=== PATIENT | female | born 1980 | race Caucasian/White ===

== ENCOUNTER 2019-10-05 08:36 | Emergency (ER) | payer BC, OTHER ==
[2019-10-05 08:46] VITALS: TEMP 98.2
--- NOTE | 2019-10-05 09:09 | ED ---
SOB HPI - General Source: patient Mode of arrival: ambulatory Limitations: no limitations <Kristi Frey - Last Filed: 10/05/19 11:11> <Mary Jane Subramanian - Last Filed: 10/07/19 14:19> - General Chief Complaint: Shortness of Breath Stated Complaint: lt leg pain, SOB Time Seen by Provider: 10/05/19 08:50 - History of Present Illness Initial Comments: Pleasant 39-year-old female presenting today for chief complaint of left calf pain shortness of breath. Patient states one month ago when running from the barn into the house she had what she felt like a left calf strain. She states that that sensation went away after a few days. Patient states the past week she has had aching throbbing left calf pain she denied knowing any significant swelling patient states that since Sunday she has had SOB she had an episode at work where she felt like she was tight in the chest, and very SOB. Patient denies and ripping tearing or back pain. Denies hemoptysis, surgeries, history of known cancer, family or personal history of PE. Patient denies experiencing this prior to the past week. Patient states that she has been having progressively worsening SOB with ambulation, talking and decided to come to the ER since it has become so severe. Denies chest pain or pressure today. Denies any known cardiac history. Patient on arrival does not appear in respiratory distress, she has normal respiration rate, speaking complete sentences. Patient accompanied by her . (Kristi Frey) - Related Data Home Medications Medication Instructions Recorded Confirmed Norgestimate-Ethinyl Estradiol 1 tab PO HS 10/05/19 10/05/19 [Tri-Sprintec Tablet] Allergies Allergy/AdvReac Type Severity Reaction Status Date / Time Penicillins Allergy Rash/Hives Verified 10/05/19 09:46 Review of Systems ROS Other: All systems not noted in ROS Statement are negative. <Kristi Frey - Last Filed: 10/05/19 11:11> ROS Other: All systems not noted in ROS Statement are negative. <Mary Jane Subramanian - Last Filed: 10/07/19 14:19> ROS Statement: Those systems with pertinent positive or pertinent negative responses have been documented in the HPI. Past Medical History Past Medical History: No Reported History History of Any Multi-Drug Resistant Organisms: None Reported Past Surgical History: Appendectomy Past Psychological History: No Psychological Hx Reported Smoking Status: Current every day smoker Past Alcohol Use History: Occasional Past Drug Use History: None Reported <Kandace Freymarisela Nazario - Last Filed: 10/05/19 11:11> General Exam Limitations: no limitations <Kristi Frey Mansi - Last Filed: 10/05/19 11:11> - General Exam Comments Initial Comments: General: The patient is awake and alert, in no distress Eye: +3 mm pupils are equal, round and reactive to light, extra-ocular movements are intact. No nystagmus. There is normal conjunctiva bilaterally. No signs of icterus. Ears, nose, mouth and throat: There are moist mucous membranes and no oral lesions. Neck: The neck is supple, there is no tenderness, no obvious JVD. Cardiovascular: There is a regular rate and rhythm. Faint murmur probable, however norub or gallop is appreciated. Respiratory: Lungs are clear to auscultation, respirations are non-labored, breath sounds are equal. No wheezes, stridor, rales, or rhonchi. Does states she feel short of breath after talking. Gastrointestinal: Soft, non-distended, non-tender abdomen without masses or organomegaly noted. There is no rebound or guarding present. Musculoskeletal: Normal ROM, no tenderness. Strength 5/5. Sensation intact. Radial and DP pulses equal bilaterally 2+. Neurological: A&O x 3. CN II-XII intact grossly, There are no obvious motor or sensory deficits. Coordination appears grossly intact. Speech is normal. Skin: Skin is warm and dry and no rashes or lesions are noted. Claf pain and tenderness to palpation over the left medial aspect there does appears to be an increase in calf size of left in comparison with the right. Psychiatric: Cooperative, appropriate mood & affect, normal judgment. (Kristi Frey) Course <ShanteKristi Nazario - Last Filed: 10/05/19 11:11> <Mary Jane Subramanian - Last Filed: 10/07/19 14:19> Vital Signs 10/05/19 10/05/19 10/05/19 08:43 09:47 09:58 Temperature 98.2 F Pulse Rate 112 H 52 L 137 H Respiratory 18 16 18 Rate Blood Pressure 141/89 98/81 163/121 O2 Sat by Pulse 97 98 98 Oximetry 10/05/19 10/05/19 10/05/19 10:00 10:09 10:12 Temperature Pulse Rate 90 88 88 Respiratory 18 18 16 Rate Blood Pressure 123/87 125/67 101/68 O2 Sat by Pulse 96 98 97 Oximetry 10/05/19 10/05/19 10/05/19 10:15 10:33 11:10 Temperature Pulse Rate 90 89 90 Respiratory 18 16 20 Rate Blood Pressure 113/69 144/112 141/102 O2 Sat by Pulse 97 82 L 94 L Oximetry 10/05/19 11:21 Temperature Pulse Rate 88 Respiratory 20 Rate Blood Pressure 132/98 O2 Sat by Pulse 97 Oximetry - Reevaluation(s) Reevaluation #1: Patient became unresponsive in the CT machine, patient was immediately evaluated by my attending Dr. Subramanian, transferred to the trauma bay. Intubated. 10/05/19 09:49 (Kristi Frey) Reevaluation #2: 10/05/19 09 (Kristi Frey) Reevaluation #3: 10/05/19 10:40 Spoke with patient's . I spoke with Dr. Mills. Requesting CT prior to transfer. Patient's vital stable at this time (Mary Jane Subramanian) Procedures - Central Line Placement Right Femoral Consent Obtained: emergent situation Patient Placed on Monitor/Pulse Ox: Yes MD Prep: mask, gown, gloves Central Line Prep: Chlorhexidine scrub Ultrasound Used for Placement: Yes Central Line Lumen Inserted: triple Bloods Obtained for Lab: No Central Line Position: good blood return, all ports aspirated, flushed, capped, sutured in place with nylon Dressing Applied: Tegaderm Patient Tolerated Procedure: no complications - Intubation Sedative: Etomidate Mg Given: 10 Paralytic: Succinylcholine Mg Given: 80 Laryngoscope: fiber optic video scope Size: 3 ET Tube Size: 7.5 ET Tube Uncuffed: No Tube Secured Depth (cm): 22 Tube Secured Location: teeth Tube Placement Confirmation: visualized tube passing through cords, equal breath sounds bilaterally, no breath sounds over epigastrium, confirmation by capnometry Patient Tolerated Procedure: well, no complications <Mary Jane Subramanian - Last Filed: 10/07/19 14:19> Medical Decision Making - Lab Data Result diagrams: 10/05/19 09:12 10/05/19 09:12 <Kristi Frey - Last Filed: 10/05/19 11:11> - Lab Data Result diagrams: 10/05/19 09:12 10/05/19 09:12 <Mary Jane Subramanian - Last Filed: 10/07/19 14:19> - Medical Decision Making I was called to CT to evaluate an unresponsive patient. Patient found to be agonal breathing and cyanotic from the shoulders up. Patient is removed from the CAT scanner and placed onto the stretcher. She is immediately placed in trauma bay 1. Patient does have a pulse at this time. She does have breath sounds bilaterally however she is agonal. Given RSI medications to include 10 mg of etomidate and 80 mg of succinylcholine. Patient intubated with a 7.5 cm tube, 22 cm at the teeth. Patient does have improvement in oxygenation in however she does have rapid bradycardia with arrest. CPR is started. Patient received a dose of epinephrine and one round of compressions lasting 3 minutes. As the patient has had a history of calf pain with exertional shortness of breath and cardiac arrest I did give the patient 50 mg of TPA over 60 seconds with suspicion that patient suffered cardiac arrest due to PE. Pulses are checked and the patient does have return of pulses. Blood pressure is cycled several time and does remain stable. Central line placed in the patient's right groin by myself. EKG obtained which demonstrates right heart strain. Labs are reviewed. Patient has elevated BNP and troponin. Repeat chest x-ray performed which does demonstrate hazy opacities bilaterally worsened on the right. I discussed case with Dr. Davey who requested CT prior to transfer. Patient sent to CT. EMS was called and arrive on scene. Patient loaded into EMS upon return from CT. Prior to transfer she has an intact gag reflex, is opening eyes spontaneously. I started the patient on propofol sedation. Radiology images reviewed by myself demonstate PE. Patient transported in critical condition. She will be transferred to [facility]. Case was discussed with their facility and Dr. Pratt is accepting doctor. CT report was called to me after patient had left confirming PE with heart strain. Report faxed to [facility] and Dr. Pratt was updated of CT read. Multiple discussions with patients informed him of his wifes critical status. allowed to see patient prior to transport. (Mary Jane Subramanian) - Lab Data Lab Results 10/05/19 10/05/19 10/05/19 Range/Units 09:12 09:12 09:12 WBC 9.8 (3.8-10.6) k/uL RBC 4.14 (3.80-5.40) m/uL Hgb 13.4 (11.4-16.0) gm/dL Hct 39.8 (34.0-46.0) % MCV 96.3 (80.0-100.0) fL MCH 32.3 (25.0-35.0) pg MCHC 33.6 (31.0-37.0) g/dL RDW 12.1 (11.5-15.5) % Plt Count 170 (150-450) k/uL Neutrophils % 75 % Lymphocytes % 16 % Monocytes % 5 % Eosinophils % 3 % Basophils % 1 % Neutrophils # 7.4 (1.3-7.7) k/uL Lymphocytes # 1.6 (1.0-4.8) k/uL Monocytes # 0.5 (0-1.0) k/uL Eosinophils # 0.3 (0-0.7) k/uL Basophils # 0.0 (0-0.2) k/uL PT (9.0-12.0) sec INR (<1.2) APTT (22.0-30.0) sec D-Dimer (<0.60) mg/L FEU Sample Site ABG pH (7.35-7.45) ABG pCO2 (35-45) mmHg ABG pO2 (83-108) mmHg ABG HCO3 (21-25) mmol/L ABG Total CO2 (19-24) mmol/L ABG O2 Saturation (94-97) % ABG Base Excess mmol/L Eleuterio Test FiO2 % Sodium 137 (137-145) mmol/L Potassium 4.3 (3.5-5.1) mmol/L Chloride 109 H (98-107) mmol/L Carbon Dioxide 19 L (22-30) mmol/L Anion Gap 9 mmol/L BUN 14 (7-17) mg/dL Creatinine 0.80 (0.52-1.04) mg/dL Est GFR (CKD-EPI)AfAm >90 (>60 ml/min/1.73 sqM) Est GFR (CKD-EPI)NonAf >90 (>60 ml/min/1.73 sqM) Glucose 102 H (74-99) mg/dL POC Glucose (mg/dL) (75-99) mg/dL POC Glu Cso ID Plasma Lactic Acid Rajendra 1.2 (0.7-2.0) mmol/L Calcium 9.3 (8.4-10.2) mg/dL Total Bilirubin 0.4 (0.2-1.3) mg/dL AST 182 H (14-36) U/L ALT 205 H (4-34) U/L Alkaline Phosphatase 69 (38-126) U/L Troponin I (0.000-0.034) ng/mL NT-Pro-B Natriuret Pep pg/mL Total Protein 6.7 (6.3-8.2) g/dL Albumin 4.0 (3.5-5.0) g/dL HCG, Qual 10/05/19 10/05/19 10/05/19 Range/Units 09:12 09:12 09:12 WBC (3.8-10.6) k/uL RBC (3.80-5.40) m/uL Hgb (11.4-16.0) gm/dL Hct (34.0-46.0) % MCV (80.0-100.0) fL MCH (25.0-35.0) pg MCHC (31.0-37.0) g/dL RDW (11.5-15.5) % Plt Count (150-450) k/uL Neutrophils % % Lymphocytes % % Monocytes % % Eosinophils % % Basophils % % Neutrophils # (1.3-7.7) k/uL Lymphocytes # (1.0-4.8) k/uL Monocytes # (0-1.0) k/uL Eosinophils # (0-0.7) k/uL Basophils # (0-0.2) k/uL PT (9.0-12.0) sec INR (<1.2) APTT (22.0-30.0) sec D-Dimer (<0.60) mg/L FEU Sample Site ABG pH (7.35-7.45) ABG pCO2 (35-45) mmHg ABG pO2 (83-108) mmHg ABG HCO3 (21-25) mmol/L ABG Total CO2 (19-24) mmol/L ABG O2 Saturation (94-97) % ABG Base Excess mmol/L Eleuterio Test FiO2 % Sodium (137-145) mmol/L Potassium (3.5-5.1) mmol/L Chloride (98-107) mmol/L Carbon Dioxide (22-30) mmol/L Anion Gap mmol/L BUN (7-17) mg/dL Creatinine (0.52-1.04) mg/dL Est GFR (CKD-EPI)AfAm (>60 ml/min/1.73 sqM) Est GFR (CKD-EPI)NonAf (>60 ml/min/1.73 sqM) Glucose (74-99) mg/dL POC Glucose (mg/dL) (75-99) mg/dL POC Glu Cso ID Plasma Lactic Acid Rajendra (0.7-2.0) mmol/L Calcium (8.4-10.2) mg/dL Total Bilirubin (0.2-1.3) mg/dL AST (14-36) U/L ALT (4-34) U/L Alkaline Phosphatase (38-126) U/L Troponin I 0.044 H* (0.000-0.034) ng/mL NT-Pro-B Natriuret Pep 2600 pg/mL Total Protein (6.3-8.2) g/dL Albumin (3.5-5.0) g/dL HCG, Qual Not Detected 10/05/19 10/05/19 10/05/19 Range/Units 09:33 11:00 11:03 WBC (3.8-10.6) k/uL RBC (3.80-5.40) m/uL Hgb (11.4-16.0) gm/dL Hct (34.0-46.0) % MCV (80.0-100.0) fL MCH (25.0-35.0) pg MCHC (31.0-37.0) g/dL RDW (11.5-15.5) % Plt Count (150-450) k/uL Neutrophils % % Lymphocytes % % Monocytes % % Eosinophils % % Basophils % % Neutrophils # (1.3-7.7) k/uL Lymphocytes # (1.0-4.8) k/uL Monocytes # (0-1.0) k/uL Eosinophils # (0-0.7) k/uL Basophils # (0-0.2) k/uL PT >130.0 H (9.0-12.0) sec INR >10.0 H* (<1.2) APTT >200.0 H* (22.0-30.0) sec D-Dimer >35.20 H (<0.60) mg/L FEU Sample Site RBRAC ABG pH 6.97 L* (7.35-7.45) ABG pCO2 76 H* (35-45) mmHg ABG pO2 175 H (83-108) mmHg ABG HCO3 17 L (21-25) mmol/L ABG Total CO2 20 (19-24) mmol/L ABG O2 Saturation 97.3 H (94-97) % ABG Base Excess -14.6 mmol/L Eleuterio Test Yes FiO2 100 % Sodium (137-145) mmol/L Potassium (3.5-5.1) mmol/L Chloride (98-107) mmol/L Carbon Dioxide (22-30) mmol/L Anion Gap mmol/L BUN (7-17) mg/dL Creatinine (0.52-1.04) mg/dL Est GFR (CKD-EPI)AfAm (>60 ml/min/1.73 sqM) Est GFR (CKD-EPI)NonAf (>60 ml/min/1.73 sqM) Glucose (74-99) mg/dL POC Glucose (mg/dL) 92 (75-99) mg/dL POC Glu Cso ID [place] Plasma Lactic Acid Rajendra (0.7-2.0) mmol/L Calcium (8.4-10.2) mg/dL Total Bilirubin (0.2-1.3) mg/dL AST (14-36) U/L ALT (4-34) U/L Alkaline Phosphatase (38-126) U/L Troponin I (0.000-0.034) ng/mL NT-Pro-B Natriuret Pep pg/mL Total Protein (6.3-8.2) g/dL Albumin (3.5-5.0) g/dL HCG, Qual - EKG Data EKG Comments: EKG performed at 9:17 AM demonstrates a ventricular rate of 101. CO interval 144. QRS 80. QTC of 466. No acute ST segment elevations. T wave with some ST depression in lead 3. EKG at 950 when patient becomes bradycardic demonstrates a junctional rhythm with a rate of 29. QRS 82. QTC 271. Some ST depression in inferior leads. Patient does code within seconds EKG after ROSC at 958 demonstrates a supra ventricular tachycardia with a ve ntricular rate of 133 . QRS 108. QTC of 470. ST depression in leads 3. Right bundle branch block. EKG at 1003 demonstrates a sinus rhythm with a ventricular rate of 93. CO interval 146. QRS 82. QTC 445. Inverted T-wave in lead 3 persist. No depression at this time. No acute ST segment elevations (Mary Jane Subramanian) Critical Care Time Critical Care Time: Yes <Mary Jane Subramanian - Last Filed: 10/07/19 14:19> Critical Care Time: 50 minutes (Mary Jane Subramanian) Disposition <Kristi Frey - Last Filed: 10/05/19 11:11> Is patient prescribed a controlled substance at d/c from ED?: No Time of Disposition: 10:50 - Out of Hospital Transfer - Req. Specs Out of Hospital Transfer - Requested Specifics: Other Emergency Center ([facility]) <Mary Jane Subramanian - Last Filed: 10/07/19 14:19> Clinical Impression: Pulmonary embolism, Cardiopulmonary arrest with successful resuscitation Disposition: OTHER INSTITUTION NOT DEFINED Condition: Critical Referrals: Todd Kumar DO [Primary Care Provider] - 1-2 days
[2019-10-05] MEDS ORDERED: ETOMIDATE 2 MG/ML 10 ML VIAL IVP STA (09:35)
[2019-10-05 09:37] LABS: Basophils % (A) 1 %; Eosinophils # (A) 0.3 k/uL (0-0.7); Eosinophils % (A) 3 %; HCT 39.8 % (34.0-46.0); HGB 13.4 gm/dL (11.4-16.0); Lymphocytes # (A) 1.6 k/uL (1.0-4.8); Lymphocytes % (A) 16 %; MCH 32.3 pg (25.0-35.0); MCHC 33.6 g/dL (31.0-37.0); MCV 96.3 fL (80.0-100.0); Mean Platelet Volume 9.2; Monocytes # (A) 0.5 k/uL (0-1.0); Monocytes % (A) 5 %; Neutrophils # (A) 7.4 k/uL (1.3-7.7); Neutrophils % (A) 75 %; Platelet Count 170 k/uL (150-450); RBC 4.14 m/uL (3.80-5.40); RDW 12.1 % (11.5-15.5); WBC 9.8 k/uL (3.8-10.6)
[2019-10-05 09:41] LABS: ALT 205 U/L (4-34); AST 182 U/L (14-36); African American GFR (CKD) >90 (>60 ml/min/1.73 sqM); Alkaline Phosphatase 69 U/L (38-126); Anion Gap 9 mmol/L; Blood Urea Nitrogen 14 mg/dL (7-17); Calcium 9.3 mg/dL (8.4-10.2); Carbon Dioxide 19 mmol/L (22-30); Chloride 109 mmol/L (98-107); Glucose 102 mg/dL (74-99); Non-African American GFR(CKD) >90 (>60 ml/min/1.73 sqM); Potassium 4.3 mmol/L (3.5-5.1); Sodium 137 mmol/L (137-145); Total Bilirubin 0.4 mg/dL (0.2-1.3); Total Protein 6.7 g/dL (6.3-8.2)
[2019-10-05 09:44] LABS: Glucose,Whole Blood 92 mg/dL (75-99)
[2019-10-05] MEDS ORDERED: SUCCINYLCHOLINE CHLORIDE VIAL 200 MG/10 ML VIAL IV STA (09:46)
[2019-10-05] MEDS ORDERED: EPINEPHrine 10 ML SYRINGE (0.1 MG/ML) ONE (09:52)
[2019-10-05] MEDS ORDERED: ALTEPLASE IV STA (09:56)
[2019-10-05] MEDS ORDERED: ALTEPLASE 100 MG VIAL IV STA (09:57)
[2019-10-05] MEDS ORDERED: ALTEPLASE 50 MG VIAL IV ONE (10:08)
--- NOTE | 2019-10-05 10:08 | XR ---
EXAMINATION TYPE: XR chest 1V DATE OF EXAM: 10/05/2019 HISTORY: difficulty breathing. REFERENCE: NONE. FINDINGS: The patient has been intubated. ET tube is in satisfactory position with the tip measuring 2.8 cm above the ilana. The lungs are clear. Pleural space are clear. The heart is not enlarged. IMPRESSION: NO ACTIVE INTRATHORACIC DISEASE.
[2019-10-05] MEDS ORDERED: ALTEPLASE 50 MG in EMPTY BAG 1 BAG IV STA (10:13)
--- NOTE | 2019-10-05 10:21 | XR ---
EXAMINATION TYPE: XR chest 1V portable DATE OF EXAM: 10/05/2019 HISTORY: CARDIAC ARREST. REFERENCE: Previous study dated 10/05/2019. FINDINGS: The patient is ET tube remains in place, unchanged in appearance. There is been a marked worsening in the appearance of the chest. There is worsening right-sided airsp ludwin disease the left lung is relatively clear. The heart is not enlarged. Pleural spaces are clear. IMPRESSION: DRAMATIC WORSENING RIGHT-SIDED AIRSPACE DISEASE FROM THE PREVIOUS STUDY. THIS COULD REPRESENT ASPIRAT ION.
[2019-10-05 11:12] VITALS: RESP 20
[2019-10-05 11:15] LABS: ABG Base Excess -14.6 mmol/L; ABG HCO3 17 mmol/L (21-25); ABG Oxygen Saturation 97.3 % (94-97); ABG PCO2 76 mmHg (35-45); ABG PH 6.97 (7.35-7.45); ABG PO2 175 mmHg (83-108); ABG TCO2 20 mmol/L (19-24); Allen Test Performed? Yes
[2019-10-05 11:22] VITALS: BP 132/98; PULSE 88
--- NOTE | 2019-10-05 11:37 | CT ---
EXAMINATION TYPE: CT chest angio for PE DATE OF EXAM: 10/05/2019 COMPARISON: None. HISTORY: Calf pain, SOB, swelling x [address] DLP: 290.1 mGycm Automated exposure control for dose reduction was used. CONTRAST: CT Chest for pulmonary embolism performed with without and with IV Contrast, patient injected with 10 0 ml mL of Isovue 370. FINDINGS: The patient is intubated. There is an NG tube with its tip at the gastroesophageal junction and should likely be advanced slightly. There is diffuse, patchy groundglass opacity throughout both lungs. This is suspicious for Covid 19 i nfection. This is most confluent in the superior segments of both lower lobes. There is no significant axillary, mediastinal or hilar adenopathy. There is no pleural or pericardial fluid. The heart is not enlarged. There are multiple pulmonary emboli in the first and second order branches of the left lower lobe pul monary artery as well as in the first order branches of the left upper lobe pulmonary artery. There a re also emboli in the right upper lobe pulmonary arteries in the first order branches. There is some reflux of contrast into the inferior vena cava and there is flattening of the ventricul ar septum. These are signs of mild right ventricular strain. IMPRESSION: 1. THIS EXAMINATION IS POSITIVE FOR PULMONARY EMBOLI BILATERALLY. 2. CT SCAN OF THE CHEST STRONGLY SUGGESTS COVID 19 INFECTION.
[2019-10-05 12:06] LABS: D-Dimer >35.20 mg/L FEU (<0.60); INR >10.0 (<1.2)
[2019-10-05 12:16] LABS: Partial Thromboplastin Time >200.0 sec (22.0-30.0)
[2019-10-05 12:17] LABS: Prothrombin Time >130.0 sec (9.0-12.0)
--- NOTE | 2019-10-07 08:06 | CDI ---
Dear Kristi Frey, PAC Please do addendum for Critical Care timing (Not Mention ) Thank you, Kali Conti Computer [employer] Auditor If you have any questions, please contact Certified Breastfeeding Educator at [phone] MARIFER
== END 2019-10-05 11:30 | disposition other institution (70) ==
LOC: EC 08:36
DX: I46.9 Cardiac arrest, cause unspecified (principal); I26.99 Other pulmonary embolism without acute cor pulmonale; I45.10 Unspecified right bundle-branch block; R79.89 Other specified abnormal findings of blood chemistry; R91.8 Other nonspecific abnormal finding of lung field; F17.200 Nicotine dependence, unspecified, uncomplicated; Z79.3 Long term (current) use of hormonal contraceptives; Z88.0 Allergy status to penicillin
CPT/HCPCS: 99291 ×2; 36556 ×2; 31500 ×2; 37195 ×2; 92950 ×2; 36415; 36600; 85379; 83880; 80053; 82805; 83605; 84484; 85025; 85610; 85730; 84703; 71045; 71275; J0330; J2997; J0171; J2704; Q9967; 94002

== ENCOUNTER → 2022-04-03 | Outpatient (CLI) | payer BC ==
--- NOTE | 2022-04-04 20:43 | MM ---
Reason for Exam: Screening (asymptomatic). Baseline mammogram. Patient History: Menarche at age 10. First Full-Term at age 20. Hormonal Contraceptives, starting at age 16. Last menstrual period: 03/26/2022 Risk Values: Patricai 5 year model risk: 0.6%. NCI Lifetime model risk: 8.8%. Prior Study Comparison: Patient's first Mammogram. No prior studies available for comparison. Tissue Density: The breast tissue is heterogeneously dense. This may lower the sensitivity of mammography. Findings: Analyzed By CAD. Underlying nodularity lower inner quadrant right breast for which further evaluation is recommended. Lateral asymmetric density left cc view at a middle depth could represent superimposition shadow but incompletely disperses on 3-D images. Further evaluation recommended. Overall Assessment: Incomplete: need additional imaging evaluation, BI-RAD 0 Management: Special View Mammogram of the left breast. Diagnostic Breast Ultrasound of the left breast. Additional views including spot 3-D CC (2 sites), 3-D CC rolled medial, spot 3-D MLO, and 3-D lateral views. Whole left breast ultrasound, particular attention to the lower inner quadrant as well as the lateral aspect. [facility] will attempt to contact patient to return for supplemental views and ultrasound if indicated. Electronically signed and approved by: Nathanael Escalante M.D. Radiologist
== END | disposition home or self-care (01) ==
LOC: RADMAMWWP 14:32
PROVIDERS: ATTEND Obstetrics & Gynecology
DX: Z12.31 Encounter for screening mammogram for malignant neoplasm of breast (principal)
CPT/HCPCS: 77063; 77067

== ENCOUNTER → 2022-04-06 | Outpatient (CLI) | payer BC ==
--- NOTE | 2022-04-06 11:16 | MM ---
Reason for Exam: Additional evaluation requested from abnormal screening. Last screening mammogram was performed less than 1 month ago. Patient History: Menarche at age 10. First Full-Term at age 20. Hormonal Contraceptives, starting at age 16. Last menstrual period: 03/29/2022 Risk Values: Patricia 5 year model risk: 0.6%. NCI Lifetime model risk: 8.8%. Prior Study Comparison: 04/03/2022 Bilateral MG 3D screening mammo w/cad, [facility]. Tissue Density: Left: There are scattered fibroglandular densities. Findings: Analyzed By CAD. The questioned lateral area of asymmetric density disperses on additional spot 3-D CC view. However, the 9 mm area of circumscribed nodularity at the 7 to 8:00 position persists. A cyst is possible. Further ultrasound evaluation is recommended. Overall Assessment: Incomplete: need additional imaging evaluation, BI-RAD 0 Management: Diagnostic Breast Ultrasound of the left breast. 7-8 o'clock. Electronically signed and approved by: Nathanael Escalante M.D. Radiologist
--- NOTE | 2022-04-06 11:43 | USB ---
Reason for Exam: Additional evaluation requested from abnormal screening. Patient History: Menarche at age 10. First Full-Term at age 20. Hormonal Contraceptives, starting at age 16. Risk Values: Patricia 5 year model risk: 0.6%. NCI Lifetime model risk: 8.8%. Prior Study Comparison: 04/03/2022 Bilateral MG 3D screening mammo w/cad, [facility]. Findings: The lower inner quadrant of the left breast, the axilla of the left breast and the retroareolar of the left breast were scanned. Targeted ultrasound left breast 6:00 to 9:00 position, lower and upper quadrant including the subareolar region and axilla. At the 7:00 position, 5 cm from the nipple, corresponding to the mammographic mass, there is a benign cyst measuring 8 x 6 x 4 mm. No other solid or cystic lesion.. Overall Assessment: Benign, BI-RAD 2 Management: Screening Mammogram of both breasts in 1 year. 1. Patient should continue monthly self breast exams. 2. A clinical breast exam by your physician is recommended on an annual basis. 3. This exam should not preclude additional follow-up of suspicious palpable abnormalities. Results were given to the patient verbally at the time of exam. Electronically signed and approved by: Nathanael Escalante M.D. Radiologist
== END | disposition home or self-care (01) ==
LOC: RADMAMWWP 10:10
PROVIDERS: ATTEND Obstetrics & Gynecology
DX: R92.8 Other abnormal and inconclusive findings on diagnostic imaging of breast (principal)
CPT/HCPCS: 77061; 77065

== ENCOUNTER 2022-09-02 07:51 | Inpatient (IN) | payer BC, MEDICARE ==
[2022-09-02] MEDS ORDERED: SODIUM CHLORIDE 0.9% 1,000 ML IV ONE (08:10)
[2022-09-02] MEDS ORDERED: HALOPERIDOL LACTATE 5 MG/ML 1 ML VIAL IM STA (08:16)
[2022-09-02] MEDS ORDERED: LORazepam 2 MG/ML INJ IM STA (08:16)
--- NOTE | 2022-09-02 08:24 | ED ---
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 Patient has been diagnosed with residual UTIs over the last few weeks and has been trialed on both Macrobid and Keflex. They are uncertain if this is contributory current history. Has a baseline history of a TBI from a cardiac arrest. At baseline does have tremors especially when she is agitated. Patient's typically makes medical decisions for herself the TBI. Patient denies any acute complaints but is agitated and does not want to be here. Patient is being petitioned by to be evaluated. They state this is not her baseline mental status or function. Patient denies any acute complaints at this time. She is unable to compare why she is feeling agitated. Denies any acute complaints including chest pain, abdominal pain, nausea, vomiting, diarrhea, shortness of breath, fevers. Presents for further evaluation at this time.Patient does appear confused when I am talking with her, and is alert and oriented 2, not knowing the year.Symptoms have been progressive for weeks, noticeably worse over the last few days.Patient's petition states that she is "seeing people that aren't there, hearing voices in her head, hearing noises in the house that weree not there, and walking in circl es around the house." Petition completed by patient's son, Octavio. - Related Data Home Medications Medication Instructions Recorded Confirmed Cephalexin [Keflex] 500 mg PO Q12HR 09/02/22 09/02/22 Donepezil [Aricept] 10 mg PO HS 09/02/22 09/02/22 amantadine HCL [Amantadine] 100 mg PO BID 09/02/22 09/02/22 levETIRAcetam 1,000 mg PO Q12HR 09/02/22 09/02/22 Allergies Allergy/AdvReac Type Severity Reaction Status Date / Time Penicillins Allergy Rash/Hives Verified 09/02/22 11:17 Review of Systems ROS Statement: Those systems with pertinent positive or pertinent negative responses have been documented in the HPI. Review of Systems: CONST: Denies fever EYES: Denies blurry vision ENT: Denies nasal congestion C/V: Denies Chest pain RESP: Denies shortness of breath GI: Denies abdominal pain : Denies dysuria SKIN: Denies rash. MSK: Denies joint pain. NEURO: Denies headache ROS Other: All systems not noted in ROS Statement are negative. Past Medical History Past Medical History: No Reported History Additional Past Medical History / Comment(s): TBI 2020 History of Any Multi-Drug Resistant Organisms: None Reported Past Surgical History: Appendectomy Past Psychological History: No Psychological Hx Reported Smoking Status: Current every day smoker Past Alcohol Use History: Occasional Past Drug Use History: None Reported General Exam - General Exam Comments Initial Comments: General: Patient is somewhat agitated. HEAD: Normal with no signs of head trauma. EYES: PERRLA, EOMI, conjunctiva normal, no discharge. Pupils are 3 mm and equal bilaterally. ENT: Hearing grossly intact, normal oropharynx. RESPIRATORY: Clear breath sounds bilaterally. No wheezes, rales, or rhonchi. C/V: Tachycardic with a regular rhythm likely secondary to anxiety and agitation. S1 and S2 auscultated, no edema, peripheral pulses 2+ and intact throughout ABD: Abd is soft, nontender, nondistended EXT: Normal range of motion, no obvious deformity SKIN: No rashes or lesions observed on exposed skin. NEURO: Alert and oriented 2, baseline being alert and oriented 3. Tremors at rest/movement switches typically baseline for the patient especially when agitated per family. No focal deficits appreciated. GCS of 15. Limitations: no limitations Course Vital Signs 09/02/22 09/02/22 07:53 12:47 Temperature 98 F Pulse Rate 110 H 90 Respiratory 18 18 Rate Blood Pressure 146/87 120/70 O2 Sat by Pulse 100 98 Oximetry Medical Decision Making - Medical Decision Making Was pt. sent in by a medical professional or institution (, PA, QUALITY INSPECTOR, urgent care, hospital, or alf...) When possible be specific @ -No Did you speak to anyone other than the patient for history (EMS, parent, family, police, friend...)? What history was obtained from this source @ -Patient's son and at bedside and provided most the patient's history including the history of cardiac arrest resulting in a nontoxic brain injury/TB I, as well as the recent recurrently diagnosis UTIs. Did you review nursing and triage notes (agree or disagree)? Why? @ -I reviewed and agree with nursing and triage notes Were old charts reviewed (outside hosp., previous admission, EMS record, old EKG, old radiological studies, urgent care reports/EKG's, alf records)? Report findings @ -Old charts reviewed from 2019. Differential Diagnosis (chest pain, altered mental status, abdominal pain women, abdominal pain men, vaginal bleeding, weakness, fever, dyspnea, syncope, headache, dizziness, GI bleed, back pain, seizure, CVA, palpatations, mental health, musculoskeletal)? @ -Differential Altered Mental Status: Hypoglycemia, DKA, hypercapnia, ETOH, overdose, CO poisoning, trauma, myxedema coma, HTN encephalopathy, infection, encephalitis, psychosis, intercranial hemorrhage, hepatic encephalopathy, meningitis, CVA, this is not meant to be an all-inclusive list EKG interpreted by me (3pts min.). @ -As above X-rays interpreted by me (1pt min.). @ -Chest x-ray reveals no acute cardio coma process. Possible small right pleural effusion. CT interpreted by me (1pt min.). @ -Patient's CT brain shows no obvious acute intracranial process. U/S interpreted by me (1pt. min.). @ -None done What testing was considered but not performed or refused? (CT, X-rays, U/S, labs)? Why? @ -None What meds were considered but not given or refused? Why? @ -None Did you discuss the management of the patient with other professionals (professionals i.e. , PA, QUALITY INSPECTOR, lab, RT, psych nurse, social director, network control supervisor, teacher, worldwide chief creative officer, transplant case manager)? Give summary @ -No Was smoking cessation discussed for >3mins.? @ -No Was critical care preformed (if so, how long)? @ -yes, 35 minutes. Were there social determinants of health that impacted care today? How? (Homele ssness, low income, unemployed, alcoholism, drug addiction, transportation, low edu. Level, literacy, decrease access to med. care, senior care, rehab)? @ -No Was there de-escalation of care discussed even if they declined (Discuss DNR or withdrawal of care, Hospice)? DNR status @ -No What co-morbidities impacted this encounter? (DM, HTN, Smoking, COPD, CAD, Cancer, CVA, ARF, Chemo, Hep., AIDS, mental health diagnosis, sleep apnea, morbid obesity)? @ -History of a nontoxic brain injury with residual TBI secondary to PE arrest Was patient admitted / discharged? Hospital course, mention meds given and route, prescriptions, significant lab abnormalities, going to OR and other pertinent info. @ -Based on the patient's presentation and physical exam, she presents with altered mental status. Is being petitioned by her . Seems to have been progressive. She is placed in green scrubs. Sitter has been ordered. His no acute complaints at this time but does not know the year. She is agitated. Initially agreed to cooperate with staff including IV access, labs drawn, CT brain and chest x-ray. Patient's family was in agreement this plan. Patient's states he will complete a petition. Patient will be given IV fluids at this time. Vital signs within acceptable limits other than sinus tachycardia likely secondary to agitation. One-time dose of as needed IV Ativan and Haldol were ordered for the patient as well. Patient's petition states that she is "seeing people that aren't there, hearing voices in her head, hearing noises in the house that weree not there, and walking in circles around the house." Petition completed by patient's son, Octavio. Patient's imaging is unremarkable. EKG shows no evidence of acute ischemic process. Patient's laboratory studies are remarkable for a very mild leukocytosis of 11. Patient has a metabolic acidosis secondary to lactic acidosis with lactate of 14.4. Troponin is undetectable. Remainder the altered mental status workup is rectal for an elevated ammonia 91. Patient's lactic acid after 1 L fluid bolus improved from 14 to 5. I do not suspect sepsis at this time as the source, as the patient has no fever, is hemodynamically stable, with minimal if any leukocytosis. I do have concern abo ut lactic acid may be elevated from either hyperammonemia, dehydration, or possibly seizures or her chronic tremors. We will repeat labs. She'll be given additional fluid bolus. Patient will be given a dose of lactulose. Hyperammonemia. Family was in agreement with this plan. Urinalysis is still pending. Patient has been already been on antibiotics, I will hold any additional antibiotics until urine studies are obtained. As stated above, low concern for sepsis at this time. Repeat lactic acid did improve to 5.1 continue to monitor however I do believe patient is stable for floor admission for evaluation by neurology as well as psychiatry. Family was in agreement with this plan. We will continue to attempt to obtain a urinalysis. I consulted neurology Dr. Leyva as well as Dr. Ontiveros as of psychiatry. I spoke with the admitting physician, Dr. wong of [facility] who is covering for Dr. Snell covers for Dr. Kumar. Undiagnosed new problem with uncertain prognosis? @ -No Drug Therapy requiring intensive monitoring for toxicity (Heparin, Nitro, Insulin, Cardizem)? @ -No Were any procedures done? @ -No Diagnosis/symptom? @ -Altered mental status, confusion Acute, or Chronic, or Acute on Chronic? @ -Acute Uncomplicated (without systemic symptoms) or Complicated (systemic symptoms)? @ -Complicated Side effects of treatment? @ -none Exacerbation, Progression, or Severe Exacerbation] @ -Progression Poses a threat to life or bodily function? @ -Yes Diagnosis/symptom? @ -Elevated lactic acidosis likely secondary to seizure versus constant tremors Acute, or Chronic, or Acute on Chronic? @ -Acute Uncomplicated (without systemic symptoms) or Complicated (systemic symptoms)? @ -Complicated Side effects of treatment? @ -none Exacerbation, Progression, or Severe Exacerbation] @ -no Poses a threat to life or bodily function? @ -Yes Diagnosis/symptom? @ -Hyperammonemia, likely contributing to altered mental status/encephalopathy Acute, or Chronic, or Acute on Chronic? @ -Acute Uncomplicated (without systemic symptoms) or Complicated (systemic symptoms)? @ -Complicated Side effects of treatment? @ -none Exacerbation, Progression, or Severe Exacerbation] @ -no Poses a threat to life or bodily function? @ -yes. - Lab Data Result diagrams: 09/02/22 08:35 09/02/22 09:35 Lab Results 09/02/22 09/02/22 09/02/22 Range/Units 08:35 08:35 08:35 WBC 11.1 H (3.8-10.6) k/uL RBC 4.05 (3.80-5.40) m/uL Hgb 13.0 (11.4-16.0) gm/dL Hct 40.2 (34.0-46.0) % MCV 99.3 (80.0-100.0) fL MCH 32.2 (25.0-35.0) pg MCHC 32.4 (31.0-37.0) g/dL RDW 12.4 (11.5-15.5) % Plt Count 272 (150-450) k/uL MPV 8.1 Neutrophils % 68 % Lymphocytes % 22 % Monocytes % 7 % Eosinophils % 1 % Basophils % 0 % Neutrophils # 7.6 (1.3-7.7) k/uL Lymphocytes # 2.5 (1.0-4.8) k/uL Monocytes # 0.8 (0-1.0) k/uL Eosinophils # 0.1 (0-0.7) k/uL Basophils # 0.0 (0-0.2) k/uL PT 10.6 (9.0-12.0) sec INR 1.0 (<1.2) APTT 22.9 (22.0-30.0) sec VBG pH (7.31-7.41) VBG pCO2 (37-51) mmHg VBG HCO3 (24-28) mmol/L Sodium 145 (137-145) mmol/L Potassium 3.4 L (3.5-5.1) mmol/L Chloride 113 H (98-107) mmol/L Carbon Dioxide 8 L* (22-30) mmol/L Anion Gap 24 mmol/L BUN 14 (7-17) mg/dL Creatinine 1.05 H (0.52-1.04) mg/dL Est GFR (CKD-EPI)AfAm 75 (>60 ml/min/1.73 sqM) Est GFR (CKD-EPI)NonAf 65 (>60 ml/min/1.73 sqM) Glucose 143 H (74-99) mg/dL Lactic Ac Sepsis Rflx Plasma Lactic Acid Rajendra (0.7-2.0) mmol/L Calcium 9.3 (8.4-10.2) mg/dL Total Bilirubin 0.8 (0.2-1.3) mg/dL AST 39 H (14-36) U/L ALT 46 H (4-34) U/L Alkaline Phosphatase 64 (38-126) U/L Ammonia (<30) umol/L Troponin I (0.000-0.034) ng/mL Total Protein 7.5 (6.3-8.2) g/dL Albumin 4.6 (3.5-5.0) g/dL Serum Alcohol <10 mg/dL 09/02/22 09/02/22 09/02/22 Range/Units 08:35 08:35 08:35 WBC (3.8-10.6) k/uL RBC (3.80-5.40) m/uL Hgb (11.4-16.0) gm/dL Hct (34.0-46.0) % MCV (80.0-100.0) fL MCH (25.0-35.0) pg MCHC (31.0-37.0) g/dL RDW (11.5-15.5) % Plt Count (150-450) k/uL MPV Neutrophils % % Lymphocytes % % Monocytes % % Eosinophils % % Basophils % % Neutrophils # (1.3-7.7) k/uL Lymphocytes # (1.0-4.8) k/uL Monocytes # (0-1.0) k/uL Eosinophils # (0-0.7) k/uL Basophils # (0-0.2) k/uL PT (9.0-12.0) sec INR (<1.2) APTT (22.0-30.0) sec VBG pH 7.14 L* (7.31-7.41) VBG pCO2 29 L (37-51) mmHg VBG HCO3 10 L (24-28) mmol/L Sodium (137-145) mmol/L Potassium (3.5-5.1) mmol/L Chloride (98-107) mmol/L Carbon Dioxide (22-30) mmol/L Anion Gap mmol/L BUN (7-17) mg/dL Creatinine (0.52-1.04) mg/dL Est GFR (CKD-EPI)AfAm (>60 ml/min/1.73 sqM) Est GFR (CKD-EPI)NonAf (>60 ml/min/1.73 sqM) Glucose (74-99) mg/dL Lactic Ac Sepsis Rflx Plasma Lactic Acid Rajendra 14.4 H* (0.7-2.0) mmol/L Calcium (8.4-10.2) mg/dL Total Bilirubin (0.2-1.3) mg/dL AST (14-36) U/L ALT (4-34) U/L Alkaline Phosphatase (38-126) U/L Ammonia 91 H (<30) umol/L Troponin I <0.012 (0.000-0.034) ng/mL Total Protein (6.3-8.2) g/dL Albumin (3.5-5.0) g/dL Serum Alcohol mg/dL 09/02/22 09/02/22 09/02/22 Range/Units 09:19 09:35 09:35 WBC (3.8-10.6) k/uL RBC (3.80-5.40) m/uL Hgb (11.4-16.0) gm/dL Hct (34.0-46.0) % MCV (80.0-100.0) fL MCH (25.0-35.0) pg MCHC (31.0-37.0) g/dL RDW (11.5-15.5) % Plt Count (150-450) k/uL MPV Neutrophils % % Lymphocytes % % Monocytes % % Eosinophils % % Basophils % % Neutrophils # (1.3-7.7) k/uL Lymphocytes # (1.0-4.8) k/uL Monocytes # (0-1.0) k/uL Eosinophils # (0-0.7) k/uL Basophils # (0-0.2) k/uL PT (9.0-12.0) sec INR (<1.2) APTT (22.0-30.0) sec VBG pH (7.31-7.41) VBG pCO2 (37-51) mmHg VBG HCO3 (24-28) mmol/L Sodium 143 (137-145) mmol/L Potassium 3.3 L (3.5-5.1) mmol/L Chloride 117 H (98-107) mmol/L Carbon Dioxide 12 L (22-30) mmol/L Anion Gap 14 mmol/L BUN 14 (7-17) mg/dL Creatinine 0.82 (0.52-1.04) mg/dL Est GFR (CKD-EPI)AfAm >90 (>60 ml/min/1.73 sqM) Est GFR (CKD-EPI)NonAf 87 (>60 ml/min/1.73 sqM) Glucose 88 (74-99) mg/dL Lactic Ac Sepsis Rflx Y Plasma Lactic Acid Rajendra 5.1 H* (0.7-2.0) mmol/L Calcium 7.4 L (8.4-10.2) mg/dL Total Bilirubin 0.4 (0.2-1.3) mg/dL AST 25 (14-36) U/L ALT 22 (4-34) U/L Alkaline Phosphatase 46 (38-126) U/L Ammonia (<30) umol/L Troponin I (0.000-0.034) ng/mL Total Protein 5.8 L (6.3-8.2) g/dL Albumin 3.3 L (3.5-5.0) g/dL Serum Alcohol mg/dL 09/02/22 Range/Units 10:03 WBC (3.8-10.6) k/uL RBC (3.80-5.40) m/uL Hgb (11.4-16.0) gm/dL Hct (34.0-46.0) % MCV (80.0-100.0) fL MCH (25.0-35.0) pg MCHC (31.0-37.0) g/dL RDW (11.5-15.5) % Plt Count (150-450) k/uL MPV Neutrophils % % Lymphocytes % % Monocytes % % Eosinophils % % Basophils % % Neutrophils # (1.3-7.7) k/uL Lymphocytes # (1.0-4.8) k/uL Monocytes # (0-1.0) k/uL Eosinophils # (0-0.7) k/uL Basophils # (0-0.2) k/uL PT (9.0-12.0) sec INR (<1.2) APTT (22.0-30.0) sec VBG pH (7.31-7.41) VBG pCO2 (37-51) mmHg VBG HCO3 (24-28) mmol/L Sodium (137-145) mmol/L Potassium (3.5-5.1) mmol/L Chloride (98-107) mmol/L Carbon Dioxide (22-30) mmol/L Anion Gap mmol/L BUN (7-17) mg/dL Creatinine (0.52-1.04) mg/dL Est GFR (CKD-EPI)AfAm (>60 ml/min/1.73 sqM) Est GFR (CKD-EPI)NonAf (>60 ml/min/1.73 sqM) Glucose (74-99) mg/dL Lactic Ac Sepsis Rflx Y Plasma Lactic Acid Rajendra (0.7-2.0) mmol/L Calcium (8.4-10.2) mg/dL Total Bilirubin (0.2-1.3) mg/dL AST (14-36) U/L ALT (4-34) U/L Alkaline Phosphatase (38-126) U/L Ammonia (<30) umol/L Troponin I (0.000-0.034) ng/mL Total Protein (6.3-8.2) g/dL Albumin (3.5-5.0) g/dL Serum Alcohol mg/dL - EKG Data -: EKG Interpreted by Me EKG Comments: 12-lead Electrocardiogram Interpretation Note EKG was reviewed and interpreted by myself. 12-lead ECG performed at 0950 is interpreted by me as revealing normal sinus rhythm at a rate of 97 beats per minute. [place] is normal. NH interval is 155 ms, QRS duration 70 ms, QTc is 419 ms.. There were no ST or T wave abnormalities to suggest myocardial ischemia or injury. R wave progression across the precordium was satisfactory. By my interpretation this EKG is non-diagnostic for acute ischemia. Critical Care Time Critical Care Time: Yes Total Critical Care Time: 35 Disposition Clinical Impression: Hyperammonemia, Lactic acidosis, Encephalopathy, Confusion, Tremor, History of traumatic brain injury Disposition: ADMITTED IP TO THIS HOSP Condition: Stable Time of Disposition: 10:32
[2022-09-02] MEDS ORDERED: HALOPERIDOL LACTATE 5 MG/ML 1 ML VIAL IVP PRN (08:28)
[2022-09-02] MEDS ORDERED: LORazepam 2 MG/ML INJ IV PRN (08:28)
[2022-09-02 08:47] LABS: Basophils % (A) 0 %; Eosinophils # (A) 0.1 k/uL (0-0.7); Eosinophils % (A) 1 %; HCT 40.2 % (34.0-46.0); Lymphocytes # (A) 2.5 k/uL (1.0-4.8); Lymphocytes % (A) 22 %; MCH 32.2 pg (25.0-35.0); MCHC 32.4 g/dL (31.0-37.0); MCV 99.3 fL (80.0-100.0); Mean Platelet Volume 8.1; Monocytes # (A) 0.8 k/uL (0-1.0); Monocytes % (A) 7 %; Neutrophils # (A) 7.6 k/uL (1.3-7.7); Neutrophils % (A) 68 %; Platelet Count 272 k/uL (150-450); RBC 4.05 m/uL (3.80-5.40); RDW 12.4 % (11.5-15.5); WBC 11.1 k/uL (3.8-10.6)
[2022-09-02 09:02] LABS: African American GFR (CKD) 75 (>60 ml/min/1.73 sqM); Albumin 4.6 g/dL (3.5-5.0); Alcohol <10 mg/dL; Alkaline Phosphatase 64 U/L (38-126); Anion Gap 24 mmol/L; Blood Urea Nitrogen 14 mg/dL (7-17); Calcium 9.3 mg/dL (8.4-10.2); Chloride 113 mmol/L (98-107); Glucose 143 mg/dL (74-99); Non-African American GFR(CKD) 65 (>60 ml/min/1.73 sqM); Potassium 3.4 mmol/L (3.5-5.1); Sodium 145 mmol/L (137-145); Total Bilirubin 0.8 mg/dL (0.2-1.3); Total Protein 7.5 g/dL (6.3-8.2)
[2022-09-02 09:05] LABS: Partial Thromboplastin Time 22.9 sec (22.0-30.0); Prothrombin Time 10.6 sec (9.0-12.0)
[2022-09-02 09:08] LABS: AST 39 U/L (14-36)
[2022-09-02 09:10] LABS: ALT 46 U/L (4-34)
[2022-09-02 09:17] LABS: VBG PH 7.14 (7.31-7.41)
[2022-09-02 09:19] LABS: Carbon Dioxide 8 mmol/L (22-30); Lactic Acid, Venous 14.4 mmol/L (0.7-2.0)
--- NOTE | 2022-09-02 09:19 | CT ---
EXAMINATION TYPE: CT brain wo con DATE OF EXAM: 09/02/2022 COMPARISON: none HISTORY: Altered mental status. History of traumatic brain injury. CT DLP: 1080.[address] of the brain was performed. The ventricles, basal cisterns and sulci overlying the cerebral convexities demonstrate a normal appe arance. There is no evidence for intracranial hemorrhage or sulcal effacement. No mass effects are seen. Osseous calvarium is intact. If symptoms persist consider MRI as clinically warranted. IMPRESSION: 1. No acute intracranial process is seen at this time.
--- NOTE | 2022-09-02 09:20 | XR ---
EXAMINATION TYPE: XR chest 2V DATE OF EXAM: 09/02/2022 COMPARISON: 10/05/2019 HISTORY: Chest pain TECHNIQUE: Frontal and lateral views of the chest are obtained. FINDINGS: There is no focal air space opacity. No evidence for pneumothorax. There is blunting of the right costophrenic angle which may reflect ple ural thickening versus small effusion. The cardiac silhouette size is within normal limits. The osseous structures are grossly intact. IMPRESSION: 1. There is blunting of the right costophrenic angle which may reflect pleural thickening versus sma ll effusion.
[2022-09-02] MEDS ORDERED: SODIUM CHLORIDE 0.9% 1,000 ML IV STA (09:23)
[2022-09-02] MEDS ORDERED: levETIRAcetam IV 500 MG/5 ML VIAL IVP STA (09:24)
[2022-09-02 10:03] LABS: ALT 22 U/L (4-34); AST 25 U/L (14-36); African American GFR (CKD) >90 (>60 ml/min/1.73 sqM); Albumin 3.3 g/dL (3.5-5.0); Alkaline Phosphatase 46 U/L (38-126); Anion Gap 14 mmol/L; Blood Urea Nitrogen 14 mg/dL (7-17); Calcium 7.4 mg/dL (8.4-10.2); Carbon Dioxide 12 mmol/L (22-30); Chloride 117 mmol/L (98-107); Glucose 88 mg/dL (74-99); Non-African American GFR(CKD) 87 (>60 ml/min/1.73 sqM); Potassium 3.3 mmol/L (3.5-5.1); Sodium 143 mmol/L (137-145); Total Bilirubin 0.4 mg/dL (0.2-1.3); Total Protein 5.8 g/dL (6.3-8.2)
[2022-09-02] MEDS ORDERED: ACETAMINOPHEN TAB 325 MG TAB PO PRN (10:44)
[2022-09-02] MEDS ORDERED: NALOXONE 0.4 MG/ML 1 ML VIAL IV PRN (10:44)
[2022-09-02] MEDS ORDERED: LACTULOSE 20 GM/30 ML CUP PO ONE (11:38)
[2022-09-02] MEDS: SODIUM CHLORIDE 0.9% 1,000 ML IV SCH ×2 (12:45→20:13)
[2022-09-02 13:56] LABS: Appearance,Urine Clear (Clear); Bilirubin,Urine Negative (Negative); Blood,Urine Negative (Negative); Color,Urine Light Yellow; Glucose,Urine (UA) Trace (Negative); Ketones,Urine 1+ (Negative); Leukocyte Esterase,Urine Negative (Negative); Nitrite,Urine Negative (Negative); Protein,Urine Negative (Negative); Urobilinogen,Urine <2.0 mg/dL (<2.0)
[2022-09-02 14:24] LABS: Amphetamine Screen,Urine Not Detected (NotDetected); Barbiturate Screen,Urine Not Detected (NotDetected); Benzodiazepines Screen,Urine Not Detected (NotDetected); Cocaine Screen,Urine Not Detected (NotDetected); Methadone Screen, Urine Not Detected (NotDetected); Opiate Screen,Urine Not Detected (NotDetected); Oxycodone Screen, Urine Not Detected (NotDetected); Phencyclidine Screen,Urine Not Detected (NotDetected); Tricyclic Antidepressant,Urine Not Detected (NotDetected); Urn Cannabinoid Scrn Not Detected (NotDetected)
--- NOTE | 2022-09-02 14:24 | P.HPIM ---
History of Present Illness This is a pleasant 42 years old female with past medical history significant for seizure on Keppra and history of anoxic brain injury Support by her family for concerns regarding coughing and hallucination and possible pleural effusion and patient got petitioned I met with the patient with and son at bedside. As per patient has been diagnosed with UTI 4 times over the last month. Which started about one month ago and she looked [place] and filled we are she was hallucinating and get more paranoid so they took her to [facility] and they diagnosed her with UTI and she prescribed antibiotic and patient felt better however down the road she follow up with her [place]CP [place] [facility] [place] check her urine analysis twice after that and diagnosed her with UTI and again and received second and third courses of antibiotics. And then went to [facility] urgent care and diagnosed with UTI for the fourth time and received antibiotic again, However over the last 2 days she started getting again, she started hallucinating and hearing voices which tell her nonspecific talking and cc people no one else disease. She got paranoid also about different thinks she sees for example when the drain [facility]. Patient denies suicidal or homicidal ideation she has a remote history of PE and her a this was stopped ordered by her contract assistant. No smoking alcohol or illicit drugs However patient is awake alert to time place and person, Recently she's been having decreased menstruation however patient denies chest pain dyspnea. No abdominal pain vomiting or diarrhea. Currently she denies dysuria or urgency although she admits some increased frequency of urination. As per she takes Keppra 1000 mg twice a day at home because she had a tremor although she's been evaluated by seizure neurologist before and told she does not have seizure. Patient says that she has good appetite and well-hydrated. Vitals stable and patient is afebrile Patient has mild leukocytosis of 11.1, rest of CBC, INR is unremarkable Low pH 7.1 on venous blood sample. Sodium normal, potassium 3.3, creatinine 1.0 came back to normal at 0.8. Lactic acid is elevated at 14.4 came down to 5.1 Liver enzymes is a mildly elevated came back to normal Serum alcohol less than 10 CT of the brain: No acute process Chest x-ray: No acute process. EKG: Normal sinus rhythm at [address]-T changes. In the emergency room she got 3 L of normal saline and continued at 75 mL/h Extra doses of Keppra 1500 is provided as well as Ativan Review of Systems Review of systems CONSTITUTIONAL: No fever, no malaise, no fatigue. HEENT: No recent visual problems or hearing problems. Denied any sore throat. CARDIOVASCULAR: No orthopnea, PND, no palpitations, no syncope. PULMONARY: No shortness of breath, no cough, no hemoptysis. GASTROINTESTINAL: No diarrhea, no nausea, no vomiting, no abdominal pain. Normoactive bowel sounds. NEUROLOGICAL: No headaches, no weakness, no numbness. HEMATOLOGICAL: Denies any bleeding or petechiae. GENITOURINARY: Denies any burning micturition, frequency, or urgency. MUSCULOSKELETAL/RHEUMATOLOGICAL: Denies any joint pain, swelling, or any muscle pain. ENDOCRINE: Denies any polyuria or polydipsia. Past Medical History Past Medical History: No Reported History Additional Past Medical History / Comment(s): TBI 2020 History of Any Multi-Drug Resistant Organisms: None Reported Past Surgical History: Appendectomy Past Psychological History: No Psychological Hx Reported Smoking Status: Current every day smoker Past Alcohol Use History: Occasional Past Drug Use History: None Reported Medications and Allergies Home Medications Medication Instructions Recorded Confirmed Type Cephalexin [Keflex] 500 mg PO Q12HR 09/02/22 09/02/22 History Donepezil [Aricept] 10 mg PO HS 09/02/22 09/02/22 History amantadine HCL [Amantadine] 100 mg PO BID 09/02/22 09/02/22 History levETIRAcetam 1,000 mg PO Q12HR 09/02/22 09/02/22 History Allergies Allergy/AdvReac Type Severity Reaction Status Date / Time Penicillins Allergy Rash/Hives Verified 09/02/22 11:17 Physical Exam Vitals: Vital Signs Temp Pulse Resp BP Pulse Ox 09/02/22 12:47 90 18 120/70 98 09/02/22 07:53 98 F 110 H 18 146/87 100 Intake and Output 09/01/22 09/02/22 09/02/22 22:59 06:59 14:59 Other: Weight 54.431 kg -GENERAL: The patient is alert and oriented x3, not in any acute distress. Well developed, well nourished. Thin built HEENT: Pupils are round and equally reacting to light. EOMI. No scleral icterus. No conjunctival pallor. Normocephalic, atraumatic. No pharyngeal erythema. No thyromegaly. CARDIOVASCULAR: S1 and S2 present. No murmurs, rubs, or gallops. PULMONARY: Chest is clear to auscultation, no wheezing , no crackles. ABDOMEN: Soft, nontender, nondistended, normoactive bowel sounds. No palpable organomegaly. MUSCULOSKELETAL: No joint swelling or deformity. EXTREMITIES: No cyanosis, clubbing, or pedal edema. NEUROLOGICAL: Gross neurological examination did not reveal any focal deficits. SKIN: No rashes. no petechiae. Results CBC & Chem 7: 09/02/22 08:35 09/02/22 09:35 Labs: Abnormal Lab Results - Last 24 Hours (Table) 09/02/22 09/02/22 09/02/22 Range/Units 08:35 08:35 08:35 WBC 11.1 H (3.8-10.6) k/uL VBG pH (7.31-7.41) VBG pCO2 (37-51) mmHg VBG HCO3 (24-28) mmol/L Potassium 3.4 L (3.5-5.1) mmol/L Chloride 113 H (98-107) mmol/L Carbon Dioxide 8 L* (22-30) mmol/L Creatinine 1.05 H (0.52-1.04) mg/dL Glucose 143 H (74-99) mg/dL Plasma Lactic Acid Rajendra 14.4 H* (0.7-2.0) mmol/L Calcium (8.4-10.2) mg/dL AST 39 H (14-36) U/L ALT 46 H (4-34) U/L Ammonia 91 H (<30) umol/L Total Protein (6.3-8.2) g/dL Albumin (3.5-5.0) g/dL 09/02/22 09/02/22 09/02/22 Range/Units 08:35 09:35 09:35 WBC (3.8-10.6) k/uL VBG pH 7.14 L* (7.31-7.41) VBG pCO2 29 L (37-51) mmHg VBG HCO3 10 L (24-28) mmol/L Potassium 3.3 L (3.5-5.1) mmol/L Chloride 117 H (98-107) mmol/L Carbon Dioxide 12 L (22-30) mmol/L Creatinine (0.52-1.04) mg/dL Glucose (74-99) mg/dL Plasma Lactic Acid Rajendra 5.1 H* (0.7-2.0) mmol/L Calcium 7.4 L (8.4-10.2) mg/dL AST (14-36) U/L ALT (4-34) U/L Ammonia (<30) umol/L Total Protein 5.8 L (6.3-8.2) g/dL Albumin 3.3 L (3.5-5.0) g/dL Assessment and Plan Assessment: Altered mental status, most likely related to metabolic encephalopathy versus psychiatric illnesses. Rule out intracranial causes Acute metabolic acidosis secondary to lactic acidosis history of tremor rather than alfred tonic-clonic Seizure for which she takes Kep pra at home, Mild hypokalemia Mild acute kidney injury improved Plan: Patient will require neurology evaluation Continue with IV hydration monitor lactic acid and creatinine and electrolytes and replace per protocol Psychiatric consult Keep sitter at bedside for safety Labs and medication were reviewed.. Continue same treatment. Continue with symptomatic treatment. Resume home medication. Monitor labs and vitals. DVT and GI prophylaxis. Further recommendations as per clinical course of the patient DVT prophylaxis: Subcutaneous heparin GI Prophylaxis: Pepcid Prognosis is guarded
--- NOTE | 2022-09-02 14:54 | P.CNNES ---
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 Patient is accompanied with her and her son was at bedside. History is obtained from the patient's . According to the that the patient had the recurrent urinary tract infection for the past 1 month. He stated that she was a initially found her to have underlying urinary tract infection about a month ago and received treatment then the after receiving the treatment that she was retested again and she again had the underlying urinary tract infection was positive and recently the was tested again positive even though she received the 2 courses of treatment so far. For the past 1 month as she's been confused, seeing things in hearing things very agitated and restless. stated that that she was on the cephalosporin antibiotic. Patient denies the patient uses any illicit drug use and she rarely drinks alcohol. She has underlying tremor as a result of the her cardiopulmonary arrest in 2019 and is on Keppra thousand milligrams every 12 hours. She had extensive workup and according the that she was evaluated by the movement disorder specialist as well as epilepsy specialist [facility] at [facility]. She was told that she did not have any underlying seizure but the Keppra would help with the tremors. She had a routine EEG as well as an ambulatory 2-3 day EEG and there were normal. She was told she did not need to follow-up with the the epilepsy specialist or the movement disorder specialist since she was stable. Per the she gets anxious her tremor gets worse. She has underlying the short-term memory as a result of her cardiopulmonary arrest in 2019 other than that the she is alert oriented 4 at baseline. Some of the workup during his hospital visit consisted of: Patient is afebrile. Initial white blood cells 11.0 thousand and other than that the CBC with differential is unremarkable. Initial plasma left acid venous 14.4 and most recent 5.1. Her ammonia level is 91. Potassium 3.3. Urine tox screen is not detecting the serum alcohol was less than 10. CT of brain is reported as no acute intracranial process seen at this time. I personally reviewed the CT [place] there is no acute subacute ischemia. There is no typical hemorrhage. Review of Systems Review of system: The 12 point system was reviewed and apparent positive and negative per HPI. Past Medical History Past Medical History: No Reported History Additional Past Medical History / Comment(s): TBI 2019 History of Any Multi-Drug Resistant Organisms: None Reported Past Surgical History: Appendectomy Past Psychological History: No Psychological Hx Reported Smoking Status: Current every day smoker Past Alcohol Use History: Occasional Past Drug Use History: None Reported Medications and Allergies Home Medications Medication Instructions Recorded Confirmed Type Cephalexin [Keflex] 500 mg PO Q12HR 09/02/22 09/02/22 History Donepezil [Aricept] 10 mg PO HS 09/02/22 09/02/22 History amantadine HCL [Amantadine] 100 mg PO BID 09/02/22 09/02/22 History levETIRAcetam 1,000 mg PO Q12HR 09/02/22 09/02/22 History Allergies Allergy/AdvReac Type Severity Reaction Status Date / Time Penicillins Allergy Rash/Hives Verified 09/02/22 11:17 Physical Examination - Vital Signs Vital Signs: Vital Signs Temp Pulse Resp BP Pulse Ox 09/02/22 14:02 93 18 123/70 97 09/02/22 12:47 90 18 120/70 98 09/02/22 07:53 98 F 110 H 18 146/87 100 Intake and Output 09/01/22 09/02/22 09/02/22 22:59 06:59 14:59 Other: Weight 54.431 kg GENERAL: The patient is lying in bed and is not in acute distress. NEUROLOGICAL: Higher mental function: The patient is drowsy but is awakeable to voice. Patient is oriented to self and time. She stated she is in the hospital but stated that at Center at [facility]. Patient stated that the she is in the [facility] currently. She's able to name her and that 2 sons names and date of correctly. She's able to name objects correctly such as pen and watch. She is able to follow simple commands. No aphasia and no neglect., Cranial nerves: The pupils are round, equal and reactive to light. Visual waters are full to confrontation throughout. Extraocular movement is intact no nystagmus is noted. Facial sensation is normal to touch throughout. The facial strength is normal throughout. Hearing is normal bilaterally to hand rub. Tongue is midline and moved [id number] without any difficulty. No dysarthria is noted. Shoulder shrug is normal bilaterally. Motor: The strength is 5 over 5 throughout. Normal tone and bulk. Patient has underlying the tremors of bilateral upper and lower that is mild to moderate. Cerebellum: Normal finger to nose bilaterally. Sensation: Sensation is normal to touch throughout. Reflexes (right/left): 2+ throughout. Plantars are downgoing bilaterally. Results - Laboratory Findings CBC and BMP: 09/02/22 08:35 09/02/22 09:35 Abnormal Lab Findings: Abnormal Labs 09/02/22 09/02/22 09/02/22 08:35 08:35 08:35 WBC 11.1 H VBG pH VBG pCO2 VBG HCO3 Potassium 3.4 L Chloride 113 H Carbon Dioxide 8 L* Creatinine 1.05 H Glucose 143 H Plasma Lactic Acid Rajendra 14.4 H* Calcium AST 39 H ALT 46 H Ammonia 91 H Total Protein Albumin Urine Glucose (UA) Urine Ketones 09/02/22 09/02/22 09/02/22 08:35 09:35 09:35 WBC VBG pH 7.14 L* VBG pCO2 29 L VBG HCO3 10 L Potassium 3.3 L Chloride 117 H Carbon Dioxide 12 L Creatinine Glucose Plasma Lactic Acid Rajendra 5.1 H* Calcium 7.4 L AST ALT Ammonia Total Protein 5.8 L Albumin 3.3 L Urine Glucose (UA) Urine Ketones 09/02/22 13:38 WBC VBG pH VBG pCO2 VBG HCO3 Potassium Chloride Carbon Dioxide Creatinine Glucose Plasma Lactic Acid Rajendra Calcium AST ALT Ammonia Total Protein Albumin Urine Glucose (UA) Trace H Urine Ketones 1+ H Assessment and Plan Assessment: This is a 42-year-old woman who had a cardiopulmonary arrest in 2019 from pulmonary embolism and as a sequela had the traumatic brain injury/short-term me senait loss, tremors that are nonepileptic in nature with been having recurrent urinary tract infection for the past 1 month and received multiple treatments and presents our facility because of confusion, agitation and hallucination for that period of time. Altered mental status likely due to underlying recurrent urinary tract infection and medication (cephalosporin). 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 She is on Keppra. History of pulmonary embolism in 2019 was on eliquis in past History of cardiopulmonary arrest due to the pulmonary embolism Plan: I ordered routine EEG to rule out any underlying seizure or discharges. In the ED she was given 2 mg Ativan once as well as R was loaded the on Keppra 1500 mg by the ED physician. I resumed her home Keppra 1000 every 12 hours. I started her on Seroquel 25 mg daily at bedtime and if needed can go up to twice a day for agitation She does not have any improvement of her symptoms on Sunday we'll order an MRI of the brain. There is no MRI techs at this current moment or for tomorrow. She was a given lactulose 20mg once in the ED Psychiatry team is consulted We'll defer the rest of the medical management to primary team Plan discussed with the patient's and son was at bedside Thank you for the consultation Time with Patient: Greater than 30
[2022-09-02] MEDS ORDERED: HEPARIN SODIUM,PORCINE/PF 5,000 UNIT/0.5 ML SYRINGE SQ SCH (16:00)
[2022-09-02] MEDS: levETIRAcetam 500 MG TAB PO SCH (20:11)
[2022-09-02] MEDS: QUEtiapine 25 MG TAB PO SCH (20:11)
[2022-09-02] MEDS: FAMOTIDINE 20 MG/2 ML VIAL IV SCH (20:12)
[2022-09-02] MEDS: HEPARIN SODIUM,PORCINE/PF 5,000 UNIT/0.5 ML SYRINGE SQ SCH (20:12)
[2022-09-03 08:39] LABS: Basophils % (A) 0 %; Eosinophils # (A) 0.1 k/uL (0-0.7); Eosinophils % (A) 2 %; HCT 35.7 % (34.0-46.0); HGB 11.5 gm/dL (11.4-16.0); Lymphocytes # (A) 1.4 k/uL (1.0-4.8); Lymphocytes % (A) 29 %; MCH 31.9 pg (25.0-35.0); MCHC 32.3 g/dL (31.0-37.0); MCV 98.7 fL (80.0-100.0); Mean Platelet Volume 8.5; Monocytes # (A) 0.4 k/uL (0-1.0); Monocytes % (A) 8 %; Neutrophils # (A) 2.9 k/uL (1.3-7.7); Neutrophils % (A) 60 %; Platelet Count 186 k/uL (150-450); RBC 3.62 m/uL (3.80-5.40); RDW 12.5 % (11.5-15.5); WBC 4.8 k/uL (3.8-10.6)
[2022-09-03 08:59] LABS: African American GFR (CKD) >90 (>60 ml/min/1.73 sqM); Anion Gap 6 mmol/L; Blood Urea Nitrogen 13 mg/dL (7-17); Calcium 7.7 mg/dL (8.4-10.2); Carbon Dioxide 20 mmol/L (22-30); Chloride 114 mmol/L (98-107); Glucose 74 mg/dL (74-99); Non-African American GFR(CKD) >90 (>60 ml/min/1.73 sqM); Potassium 3.7 mmol/L (3.5-5.1); Sodium 140 mmol/L (137-145)
[2022-09-03] MEDS: levETIRAcetam 500 MG TAB PO SCH ×2 (09:26→20:02)
[2022-09-03] MEDS: FAMOTIDINE 20 MG/2 ML VIAL IV SCH ×2 (09:26→20:02)
[2022-09-03] MEDS: HEPARIN SODIUM,PORCINE/PF 5,000 UNIT/0.5 ML SYRINGE SQ SCH ×2 (09:26→20:02)
--- NOTE | 2022-09-03 11:51 | P.PN ---
Subjective Progress Note Date: 09/03/22 Patient seen at bedside and according to patient nurse her mentation is drastically better. Per the nurse she's been more cooperative and less agitated. Patient is sitting in a chair and she feels she is doing good denies of any new neurological issues at. Objective - Vital Signs Vital signs: Vital Signs Temp 98.4 F 09/03/22 08:35 Pulse 42 L 09/03/22 08:35 Resp 18 09/03/22 08:35 BP 108/63 09/03/22 08:35 Pulse Ox 92 L 09/03/22 08:35 FiO2 Intake & Output 09/02/22 09/03/22 09/03/22 18:59 06:59 18:59 Intake Total 900 Balance 900 Weight 54.431 kg Intake: Intake, IV Titration 900 Amount Sodium Chloride 0.9% 1, 900 000 ml @ 75 mls/hr IV . [id number] [facility] Rx#:[id number] Other: Voiding Method Toilet Toilet # Voids 1 1 - Exam GENERAL: The patient is sitting in a recliner chair and is not in acute distress. NEUROLOGICAL: Higher mental function: The patient is awake, alert, oriented to self, time. She stated she was in the hospital but did not know name. She is able to follow simple commands. No aphasia and no neglect., Cranial nerves: The pupils are round, equal and reactive to light. Visual waters are full to confrontation throughout. Extraocular movement is intact no nystagmus is noted. Facial sensation is normal to touch throughout. The facial strength is normal throughout. Hearing is normal bilaterally to hand rub. Tongue is midline and moved [id number] without any difficulty. No dysarthria is noted. Shoulder shrug is normal bilaterally. Motor: The strength is 5 over 5 throughout. Normal tone and bulk. Patient has underlying the tremors of bilateral upper and lower that is mild to moderate. upon extension. Cerebellum: Normal finger to nose bilaterally. Sensation: Sensation is normal to touch throughout. Reflexes (right/left): 2+ throughout. Plantars are downgoing bilaterally. Some of the workup during his hospital visit consisted of: Patient is afebrile. Initial white blood cells 11.0 thousand--resolved and other than that the CBC with differential is unremarkable. Initial plasma left acid venous 14.4 and most recent 5.1--resolved. Her ammonia level is 91--resolved. Potassium 3.3. Urine tox screen is not detecting the serum alcohol was less than 10. CT of brain is reported as no acute intracranial process seen at this time. I personally reviewed the CT [place] there is no acute subacute ischemia. There is no hemorrhage. 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 Altered mental status likely due to underlying recurrent urinary tract infection and medication (cephalosporin). 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 Cannot exclusively rule out underlying seizure History of traumatic brain injury/short-term memory was as a result of cardiopulmonary embolism from the PE 2019 History of tremors as a sequela cardiopulmonary arrest and patient had extensive testing and had EEG as well as prolonged EEG for 2-3 days and was told at nonepileptic in nature. She is on Keppra. History of pulmonary embolism in 2020 was on eliquis in past History of cardiopulmonary arrest due to the pulmonary embolism Plan: Patient is doing drastically better today compared to the initial presentation. Pending routine EEG to rule out any active seizure or discharges. I ordered MRI Brain w/o to rule out any acute or subacute changes. She is continued on her home medication of Keppra at thousand milligrams every 12 hours. Yesterday I start the patient on Seroquel 25 mg daily at bedtime for agitation. Psychiatry team was consulted We'll defer the rest of the medical management to the primary team and other specialists The plan discussed with the patient, primary attending and her nurse Dr. Castellon will start neurology service tomorrow A.M. Time with Patient: Less than 30
--- NOTE | 2022-09-03 15:50 | P.CN ---
Psychiatric Consult - . Consult date: 09/03/22 Consult:: 09/03/22 12:27 IDENTIFYING DATA: This patient is a 42-year-old female, currently , lives with her and 2 kids in a house REASON FOR REFERRAL: Psychiatry was consulted for ["petition, hallucinations"] HISTORY OF PRESENT ILLNESS: The patient presented to the hospital on 09/02 for ams, confusion. patient has a significant hx of hypoxic brain injury. patient apparently has been increasing in her agitation and more confused lately for the past few weeks. she was also apprently experiencing Ah and vh. patient was found to have an increase in her ammonia level o/a. uds was negative. neurology is on board and following. Brain Ct was completed and did not show any acute changes. patients nurse claims that she is doing muc h better today. she was seen in her room eating with her and son. she was agreeable to speak to investment underwriter. she was directable and cooperative. she had difficulties and hesitancy with some questions. she claims that she is doing better today, states that she cant remember exactly what happened for her coming into the hospital. denies any depression or anxiety at this time. andrez that she is at "[facility]" and was corrected. [facility] that it is september 02, correct name. poor eye contact, constricted affect. claims her sleep is fair now, appetite is improving. At this time patient denies any suicidal or homical ideations, intent or plan. Patient denies any auditory, visual hallucinations and denies any paranoia or delusions. Patients admits to using no rec drugs or ciagrettes. PAST PSYCHIATRIC HISTORY: Patient has a a history of hypoxic brain injury. [Patient denies being on any psychiatric medications, however currently on seroquel qhs.] [Patient denies any previous psychiatric hospitalizations.] [Patient denies any psychiatric outpatient follow-up.] [Patient denies any history of suicide attempts in the past.] Past Medical History: No Reported History Additional Past Medical History / Comment(s): TBI 2020 History of Any Multi-Drug Resistant Organisms: None Reported Past Surgical History: Appendectomy Past Psychological History: No Psychological Hx Reported Smoking Status: Current every day smoker Past Alcohol Use History: Occasional Past Drug Use History: None Reported ALLERGIES: as per EMR. CHEMICAL DEPENDENCY HISTORY: as per HPI. FAMILY PSYCHIATRIC/SUBSTANCE USE HISTORY: [denies] SOCIAL HISTORY: Patient was born and raised in [place], [place]. she claims that she completed high school, did some college, denies any legal hx. she currently lives with her and 2 kids at home. MENTAL STATUS EXAM: General Appearance: Patient appears to be mildly tremulous, stated age is alert, poor eye contact, pleasant, and cooperative. Patient appears to have [fair] hygiene and grooming wearing hospital gown Behavior: [Patient is calmly lying in bed without any agitated behavior.] cooperative. Speech: Patient's speech is fluent and nonpressured. monotone, concrete Mood/Affect: Patient reports their mood is "[depressed]", affect is congruent Suicidality/Homicidality: Patient denies having any suicidal or homicidal ideation intent or plan. Perceptions: Patient denies any visual hallucinations [and denies any auditory hallucinations] Though content/process: There is no evidence of any delusional thought content and thought process is linear and goal-directed. hesitant Memory and concentration: AOX2, wrong location but knows shes in a hospital, grossly intact for the purposes of this session. Judgment and insight: chronically limited IMPRESSIONS: Delirium, likely etiology toxic-metabolic (elevated ammonia) hx of hypoxic brain injury PLAN: -At this time patient DOES [NOT] meet criteria for inpatient psychiatric admission. [-Delirium precautions recommended with patient including - avoiding use of narcotics and PRODUCTION TOOL ENGINEER sedatives, limit anticholinergic medications when possible, frequent re-orientation, minimize use of restraints, open window shades during the day and close them at night] -Would recommend the following medication changes/additions: continue with seroquel 25 mg qhs for psychosis/delirium/insomnia. PLEASE consider switching patients AED keppra to something else as it may be causing adverse reactions (agitation, psychosis, possibly ammonia incr?) -unsure as to why patients ammonia would be elevated at this time. [-Can discontinue 1:1 sitter at this time as patient is not currently an imminent threat to themselves] -appreciate neuro recs, pending mri and eeg results [-scrap metal processing worker to provide patient with outpatient mental health/psychiatry resources for appropriate follow up upon discharge] [-Communicated plan to patient's nurse] -Psychiatry will sign off at this time -Please contact with any questions. 09/03/22 15:36 09/03/22 15:49
--- NOTE | 2022-09-03 19:49 | P.PN ---
Subjective This is a pleasant 42 years old female with past medical history significant for seizure on Keppra and history of anoxic brain injury Support by her family for concerns regarding coughing and hallucination and possible pleural effusion and patient got petitioned I met with the patient with and son at bedside. As per patient has been diagnosed with UTI 4 times over the last month. Which started about one month ago and she looked [facility] and filled we are she was hallucinating and get more paranoid so they took her to [facility] and they diagnosed her with UTI and she prescribed antibiotic and patient felt better however down the road she follow up with her PCP at [facility] to check her urine analysis twice after that and diagnosed her with UTI and again and received second and third courses of antibiotics. And then went to urgent care and diagnosed with UTI for the fourth time and received antibiotic again, However over the last 2 days she started getting again, she started hallu cinating and hearing voices which tell her nonspecific talking and cc people no one else disease. She got paranoid also about different thinks she sees for example when the drain [facility]. Patient denies suicidal or homicidal ideation she has a remote history of PE and her a this was stopped ordered by her moid middle school teacher. No smoking alcohol or illicit drugs However patient is awake alert to time place and person, Recently she's been having decreased menstruation however patient denies chest pain dyspnea. No abdominal pain vomiting or diarrhea. Currently she denies dysuria or urgency although she admits some increased frequency of urination. As per she takes Keppra 1000 mg twice a day at home because she had a tremor although she's been evaluated by seizure neurologist before and told she does not have seizure. Patient says that she has good appetite and well-hydrated. Vitals stable and patient is afebrile Patient has mild leukocytosis of 11.1, rest of CBC, INR is unremarkable Low pH 7.1 on venous blood sample. Sodium normal, potassium 3.3, creatinine 1.0 came back to normal at 0.8. Lactic acid is elevated at 14.4 came down to 5.1 Liver enzymes is a mildly elevated came back to normal Serum alcohol less than 10 CT of the brain: No acute process Chest x-ray: No acute process. EKG: Normal sinus rhythm at [address]-T changes. In the emergency room she got 3 L of normal saline and continued at 75 mL/h Extra doses of Keppra 1500 is provided as well as Ativan 09/03/2022 Patient clinically significantly improved, she is calm sitting in chair comfortable denies any specific symptoms and states she is back to baseline. Vitals and labs are stable. Elevated ammonia level came back to normal less than 9 lactic acid came back to normal at 1.2, leukocytosis also back to normal. Blood cultures pending but infection is suspected. Patient continued on Keppra Psychiatry input is appreciated, they don't think patient has any psychiatric illness that requires attention now. Her symptoms could be explained by medication however they are stable now. EEG and MRI of the brain are still pending. Possible discharge in 24-48 hours Objective - Vital Signs Vital signs: Vital Signs Temp 98.4 F 09/03/22 08:35 Pulse 42 L 09/03/22 08:35 Resp 18 09/03/22 08:35 BP 108/63 09/03/22 08:35 Pulse Ox 92 L 09/03/22 08:35 FiO2 Intake & Output 09/02/22 09/03/22 09/03/22 18:59 06:59 18:59 Intake Total 900 Balance 900 Weight 54.431 kg Intake: Intake, IV Titration 900 Amount Sodium Chloride 0.9% 1, 900 000 ml @ 75 mls/hr IV . [id number] [facility] Rx#:[id number] Other: Voiding Method Toilet Toilet # Voids 1 1 - Exam GENERAL: The patient is alert and oriented x3, not in any acute distress. Well developed, well nourished. HEENT: Pupils are round and equally reacting to light. EOMI. No scleral icterus. No conjunctival pallor. Normocephalic, atraumatic. No pharyngeal erythema. No thyromegaly. CARDIOVASCULAR: S1 and S2 present. No murmurs, rubs, or gallops. PULMONARY: Chest is clear to auscultation, no wheezing . no crackles. ABDOMEN: Soft, nontender, nondistended, normoactive bowel sounds. No palpable organomegaly. MUSCULOSKELETAL: No joint swelling or deformity. EXTREMITIES: No cyanosis, clubbing, or pedal edema. NEUROLOGICAL: Gross neurological examination did not reveal any focal deficits. SKIN: No rashes. no petechiae. - Labs CBC & Chem 7: 09/03/22 07:33 09/03/22 07:33 Labs: Abnormal Lab Results - Last 24 Hours (Table) 09/02/22 09/03/22 09/03/22 Range/Units 13:38 07:33 07:33 RBC 3.62 L (3.80-5.40) m/uL Chloride 114 H (98-107) mmol/L Carbon Dioxide 20 L (22-30) mmol/L Calcium 7.7 L (8.4-10.2) mg/dL Urine Glucose (UA) Trace H (Negative) Urine Ketones 1+ H (Negative) Assessment and Plan Assessment: Altered mental status, most likely related to metabolic encephalopathy versus psychiatric illnesses. Rule out intracranial causes Acute metabolic acidosis secondary to lactic acidosis history of tremor rather than alfred tonic-clonic Seizure for which she takes Keppra at home, Mild hypokalemia Mild acute kidney injury improved Plan: neurology evaluation is appreciated discontinue IV hydration Follow-up MRI of the brain and EEG Psychiatric consult site of the case Continue sitter at bedside Labs and medication were reviewed.. Continue same treatment. Continue with symptomatic treatment. Resume home medication. Monitor labs and vitals. DVT and GI prophylaxis. Further recommendations as per clinical course of the patient DVT prophylaxis: Subcutaneous heparin GI Prophylaxis: Pepcid Prognosis is guarded
[2022-09-03] MEDS: SODIUM CHLORIDE 0.9% 1,000 ML IV SCH (20:02)
[2022-09-03] MEDS: QUEtiapine 25 MG TAB PO SCH (20:02)
[2022-09-04 07:37] VITALS: RESP 16
[2022-09-04] MEDS: HEPARIN SODIUM,PORCINE/PF 5,000 UNIT/0.5 ML SYRINGE SQ SCH (08:26)
[2022-09-04] MEDS: FAMOTIDINE 20 MG/2 ML VIAL IV SCH (08:27)
[2022-09-04] MEDS: levETIRAcetam 500 MG TAB PO SCH (08:27)
[2022-09-04 11:37] VITALS: BP 109/70; PULSE 72; TEMP 98.4
--- NOTE | 2022-09-04 12:57 | MR ---
EXAMINATION TYPE: MR brain wo con DATE OF EXAM: 09/04/2022 COMPARISON: CT brain 2 days earlier. HISTORY: Encephalopathy of unknown etiology. Altered mental status on admission 2 days earlier. TECHNIQUE: Multiplanar, multisequence imaging of the brain and brainstem is performed without IV cont rast. FINDINGS: Diffusion weighted images demonstrate no evidence of a recent infarct or other diffusion abnormality. The ventricular system and cisternal spaces are normal in size and appearance. The brain volume is a ge appropriate. Occasional focus of T2 hyperintensity scattered throughout the white matter bilateral ly. Approximately 10-13 scattered small lesions are seen. Lesions are nonspecific in appearance and d istribution. Midline structures demonstrate normal morphology. The craniocervical junction appears within normal limits. Normal vascular flow voids are present. The visualized sinuses are clear and the globes are i ntact. IMPRESSION: No MRI evidence for a recent infarct. Mild nonspecific white matter changes are present.
--- NOTE | 2022-09-04 15:44 | EEG ---
ELECTROENCEPHALOGRAM REPORT PREAMBLE: This is a 42-year-old female with confusion, rule out seizure. CURRENT MEDICATIONS: 1. Pepcid. 2. Keppra. 3. Ativan. 4. Seroquel. EEG FINDINGS: This is a 21-channel digital EEG recorded with video component, utilizing 10/20 International System with referential and bipolar montages. Background consists of well-developed, well-regulated, moderate-voltage activity in 10 to 11 Hz alpha. Background is posterior dominant and reactive to eye opening and closing. Photic driving response was not seen. Different stages of sleep were not seen. No focal or generalized epileptiform activity was seen. IMPRESSION: This is a normal awake EEG. No focal, lateralized, or epileptiform activity was seen. MMODL / IJN: [id number] /
--- NOTE | 2022-09-04 17:20 | P.PN ---
Subjective Progress Note Date: 09/04/22 Patient initially seen by Dr. Ori Leyva appeared please refer to his note for details. 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 Dr. Leyva felt was related to recurrent UTI and medication effect. Also has mildly elevated ammonia. Pending EEG and MRI. Patient at present is laying comfortably in the bed. Offers no complaints. She still has tremors, which has been present for a long time. He also has short- term memory issues. Patient's was also present today. They mentioned that patient never has any history of seizures. Keppra was given for tremors. Some of the workup during his hospital visit consisted of: Patient is afebrile. Initial white blood cells 11.0 thousand--resolved and other than that the CBC with differential is unremarkable. Initial plasma left acid venous 14.4 and most recent 5.1--resolved. Her ammonia level is 91--resolved. Potassium 3.3. Urine tox screen is not detecting the serum alcohol was less than 10. CT of brain is reported as no acute intracranial process seen at this time. I personally reviewed the CT Onur there is no acute subacute ischemia. There is no hemorrhage. Objective - Vital Signs Vital signs: Vital Signs Temp 98.4 F 09/04/22 11:36 Pulse 72 09/04/22 11:36 Resp 16 09/04/22 11:36 BP 109/70 09/04/22 11:36 Pulse Ox 98 09/04/22 11:36 FiO2 Intake & Output 09/03/22 09/04/22 09/04/22 18:59 06:59 18:59 Intake Total 900 120 Balance 900 120 Intake: Intake, IV Titration 900 Amount Sodium Chloride 0.9% 1, 900 000 ml @ 75 mls/hr IV . [id number] [facility] Rx#:[id number] Oral 120 Other: Voiding Method Toilet # Voids 1 1 2 - Exam Patient is alert and awake, in no distress. She is laying comfortably in the bed. Patient is somewhat thin built. Speech and language functions are normal. Patient knows it is August 2022 and that she is in [place] in [place]. She thinks it is [place] [facility]. She knows name of the current president. Her visual waters are full, face is symmetric and tongue protrudes the midline. On muscle strength testing, the strength is normal in both arms distally and proximally. She does have tremors of outstretched hands, right more than left. Somewhat metabolic, fine tremor. - Labs CBC & Chem 7: 09/03/22 07:33 09/03/22 07:33 Labs: Microbiology - Last 24 Hours (Table) 09/02/22 08:35 Blood Culture - Preliminary Blood 09/02/22 08:35 Blood Culture - Preliminary Blood Assessment and Plan Assessment: This is a 42-year-old woman who had a cardiopulmonary arrest in 2019 from pulmonary embolism and as a sequela had the traumatic brain injury/short-term memory loss, tremors that are nonepileptic in nature with been having recurrent urinary tract infection for the past 1 month and received multiple treatments and presents our facility because of confusion, agitation and hallucination for that period of time. Altered mental status likely due to underlying recurrent urinary tract infection and medication (cephalosporin). 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 Cannot exclusively rule out underlying seizure. History of traumatic brain injury/short-term memory was as a result of cardiopulmonary embolism from the PE 2019 History of tremors as a sequela cardiopulmonary arrest and patient had extensive testing and had EEG as well as prolonged EEG for 2-3 days and was told at nonepileptic in nature. She is on Keppra. History of pulmonary embolism in 2020 was on eliquis in past History of cardiopulmonary arrest due to the pulmonary embolism Plan: Patient is doing drastically better today compared to the initial presentation. Routine EEG was normal. No epileptiform activity was seen. MRI Brain w/o revealed no acute process. No recent infarct. Mild nonspecific white matter changes are present. I personally reviewed MRI, agree with the findings. Patient is currently on Keppra at 1000 mg every 12 hours. Patient never has any history of clinical seizure. Keppra was given for tremors. She has some behavioral issues as well. Suggested decrease Keppra to 500 mg in the morning, and 1000 mg at night. After 10 days, decrease Keppra to 500 mg twice a day. Instructed patient's not to completely stop Keppra, until seen by the neurologist. She needs to follow-up with a neurologist, consider switching from Keppra to Mysoline. Patient follows up with neurologist at [facility], but they want to switch to a neurologist locally. Will defer to IM. Patient's lactate, ammonia and liver functions all have returned back to normal. Urine also normal now. Dr. Leyva has started the patient on Seroquel 25 mg daily at bedtime for agitation. Telemetry monitoring showing sinus bradycardia between 50s to 60s. Occasionally goes in the 100 range. No other arrhythmia. Psychiatry team was consulted We'll defer the rest of the medical management to the primary team and other specialists Neurologically clear for discharge.
--- NOTE | 2022-09-04 23:06 | P.DS ---
Providers Date of admission: 09/02/22 10:44 Attending physician: Juve Livingston MD Consults: 09/02/22 10:44 Consult Physician Routine Consulting Provider: Mango Leyva Consult Reason/Comments: ams, confusion, possible seizure Do you want consulting provider notified?: Yes Consult Physician Routine Consulting Provider: Jasvir Ontiveros Consult Reason/Comments: petition, hallucinations Do you want consulting provider notified?: Yes Primary care physician: Todd Kumar Hospital Course: Diagnoses: Altered mental status, most likely related to metabolic encephalopathy completely resolved Acute metabolic acidosis secondary to lactic acidosis, resolved Elevated Ammonia, improved back to reference range history of tremor rather than alfred tonic-clonic Seizure for which she takes Keppra at home, Mild hypokalemia, improved Mild acute kidney injury improved dementia and memory problems Hospital course: This is a pleasant 42 years old female with past medical history significant for seizure on Keppra and history of anoxic brain injury Support by her family for concerns regarding coughing and hallucination and possible pleural effusion and patient got petitioned I met with the patient with and son at bedside. As per patient has been diagnosed with UTI 4 times over the last month. The patient presents because of altered mental status secondary to metabolic derangements, she has elevated lactic acid which is improved with IV hydration as well as mild leukocytosis, elevated ammonia level. Patient was admitted with IV hydration and on her metabolic derangements improved and corrected and the same time, patient is back to baseline, Intracranial causes ruled out by neurologist with EEG and MRI of the brain were unremarkable. Neurologist recommended to taper down From from 1000 mg down to 500 mg, I talked to the hospital and he is agreeable for gradual taper (see discharge medication and instructions), this medication is given for her for tremor other than seizure as an outpatient Patient also involved by psychiatrist. Patient back to baseline and she agrees to go home today as well as family. Patient was cleared for discharge by neurologist and psychiatrist Problems and management plan were discussed with the patient and he verbalized understanding and acceptance Patient was found stable and can be discharged home in guarded prognosis however he needs follow-up as an outpatient. Patient was instructed to follow up with PCP Dr. Limon within one week and patient agrees Patient was instructed to follow up with neurologist as an outpatient in 1-2 weeks, Dr. Paredes and Dr. Mcginnis are suggested for her and she and the agreed to call to make appointment Physical exam Gen: patient is a AAOx3, no distress CVS: S1-S2, RRR, no murmur Lungs: B/L CTA, no wheezing Abdomen: soft, no distention, no tenderness, positive bowel sounds Extremity: no leg edema or induration Time spent more than 35 minutes Patient Condition at Discharge: Stable Plan - Discharge Summary Discharge Rx Participant: No New Discharge Prescriptions: New QUEtiapine [SEROquel] 25 mg PO HS #30 tab Acetaminophen Tab [Tylenol] 650 mg PO Q6HR PRN tab PRN Reason: Mild Pain Or Fever > 100.5 levETIRAcetam [Keppra] 500 mg PO DIRECTED #60 tab Continue Donepezil [Aricept] 10 mg PO HS levETIRAcetam 1,000 mg PO Q12HR amantadine HCL [Amantadine] 100 mg PO BID No Action Cephalexin [Keflex] 500 mg PO Q12HR Discharge Medication List Cephalexin [Keflex] 500 mg PO Q12HR 09/02/22 [History] Donepezil [Aricept] 10 mg PO HS 09/02/22 [History] amantadine HCL [Amantadine] 100 mg PO BID 09/02/22 [History] levETIRAcetam 1,000 mg PO Q12HR 09/02/22 [History] Acetaminophen Tab [Tylenol] 650 mg PO Q6HR PRN tab 09/04/22 [Rx] QUEtiapine [SEROquel] 25 mg PO HS #30 tab 09/04/22 [Rx] levETIRAcetam [Keppra] 500 mg PO DIRECTED #60 tab 09/04/22 [Rx] Follow up Appointment(s)/Referral(s): Bob Limon MD [REFERRING] - 1-2 days Nely Paredes MD [Medical Doctor] - 1 Week (neurologist ) Tom Mcginnis MD [REFERRING] - 1 Week (neurologist ) Patient Instructions/Handouts: Lactic Acidosis (GEN) Activity/Diet/Wound Care/Special Instructions: heart healthy diet activity is restricted till you see your doctor Patient is currently on Keppra at 1000 mg every 12 hours. Patient never has any history of clinical seizure. Keppra was given for tremors. She has some behavioral issues as well. Suggested decrease Keppra to 500 mg in the morning, and 1000 mg at night. After 10 days, decrease Keppra to 500 mg twice a day. Instructed patient's not to completely stop Keppra, until seen by the neurologist. She needs to follow-up with a neurologist, consider switching from Keppra to Mysoline Discharge Disposition: HOME SELF-CARE
--- NOTE | 2022-09-06 14:39 | CDI ---
Documentation Clarification Form Date: 09/06/22 From: Farida Bonilla Admit Date: 09/02/2022 10:44:00 AM Patient Name: Ewa Vivas Visit Number: [id number] Discharge Date: 09/04/2022 06:50:00 PM ATTENTION: The Clinical Documentation Specialists (CDI) and [facility] Coding Staff appreciate your assistance in clarifying documentation. Please respond to the clarification below the line at the bottom and electronically sign. The CDI & [facility] Coding staff will review the response and follow-up if needed. Please note: Queries are made part of the Legal Health Record. If you have any questions, please contact the author of this message via ITS. Dr. Juve Livingston, Conflicting documentation has been found in the medical record. As attending physician, please provide clarification. Altered mental status, most likely related to metabolicencephalopathyversus psychiatric illnesses. H&P, 09/02, Metabolic Encephalopathy. Delirium,likelyetiologytoxic-metabolic (elevatedammonia), Consult, 09/03, other toxic encephalopathy History/Risk Factors: ZACHERY, Dementia, Hypokalemia, and Hyperammonemia. Clinical Indicators: Tremors, hallucinations, Recurrent UTIs, and Paranoia. Treatment: IV hydration, Extra doses of Keppra 1500 is provided as well as Ativan, EEG, Please clarify which diagnosis is most appropriate: [ ] Metabolicencephalopathy [ ] Other toxic encephalopathy [ ] Other (please specify) [ ] Unable to determine please refer to my discharge summary , clearly documented MTDD
== END 2022-09-04 18:50 | disposition home or self-care (01) | DRG 71 ==
LOC: EC 07:51 → SUPCPDRO 07:51 → 5NMEDONC 10:44
PROVIDERS: ADMIT Internal Medicine; ATTEND Internal Medicine
DX: G93.41 Metabolic encephalopathy (principal); E72.20 Disorder of urea cycle metabolism, unspecified; N17.9 Acute kidney failure, unspecified; E87.21 Acute metabolic acidosis; F03.918 Unspecified dementia, unspecified severity, with other behavioral disturbance; G92.8 Other toxic encephalopathy; E87.6 Hypokalemia; G25.2 Other specified forms of tremor; F17.200 Nicotine dependence, unspecified, uncomplicated; Z79.899 Other long term (current) drug therapy; Z86.711 Personal history of pulmonary embolism; Z87.440 Personal history of urinary (tract) infections; Z87.820 Personal history of traumatic brain injury; Z86.74 Personal history of sudden cardiac arrest; Z88.0 Allergy status to penicillin
CPT/HCPCS: 36415; 51798; 70450; 70551; 71046; 80048; 80053; 80177; 80306; 80320; 81003; 82075; 82140; 82803; 83605; 84484; 84703; 85025; 85610; 85730; 87040; 93005; 95816; 96361; 96372; 96374; 96375; 99291

== ENCOUNTER 2022-10-15 05:20 | Observation (INO) | payer BC, MEDICARE ==
[2022-10-15] MEDS ORDERED: HALOPERIDOL LACTATE 5 MG/ML 1 ML VIAL IM STA ×2 (06:06→06:11)
[2022-10-15] MEDS ORDERED: LORazepam 2 MG/ML INJ IM STA (06:06)
[2022-10-15] MEDS ORDERED: diphenhydrAMINE 50 MG/ML 1 ML VIAL IM STA (06:06)
--- NOTE | 2022-10-15 06:47 | ED ---
Altered Mental Status HPI - General Chief Complaint: Altered Mental Status Stated Complaint: Amonia levels Time Seen by Provider: 10/15/22 05:57 Source: patient, family, RN notes reviewed Mode of arrival: ambulatory Limitations: altered mental status - History of Present Illness Initial Comments: This is a 42-year-old female who presents to the emergency department for altered mental status. 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 This took place in 2019. Per patient's , she has a history of multiple UTIs and elevated ammonia levels, all leading to increasing agitation and altered mental status. At this point, she has had altered mental status over the last 2 days. She is still awaiting an appointment with Dr. Paredes, neurology, however this is still 4 weeks out. Patient is very agitated and does not want to be here. She's tried multiple times to get up and leave. She is also making bizarre statements like "I want you to tell me where my money is". MD Complaint: altered mental status, confusion Onset/Timin -: days(s) - Related Data Home Medications Medication Instructions Recorded Confirmed Donepezil [Aricept] 5 mg PO BID 09/02/22 10/15/22 amantadine HCL [Amantadine] 100 mg PO DAILY 09/02/22 10/15/22 Ibuprofen [Motrin] 800 mg PO Q8H PRN 10/15/22 10/15/22 Zolpidem [Ambien] 5 mg PO HS 10/15/22 10/15/22 levETIRAcetam [Keppra] 500 mg PO BID 10/15/22 10/15/22 Allergies Allergy/AdvReac Type Severity Reaction Status Date / Time Penicillins Allergy Rash/Hives Verified 10/15/22 13:44 Review of Systems ROS Statement: Those systems with pertinent positive or pertinent negative responses have been documented in the HPI. ROS Other: All systems not noted in ROS Statement are negative. Past Medical History Past Medical History: Deep Vein Thrombosis (DVT), Pulmonary Embolus (PE) Additional Past Medical History / Comment(s): TBI 2019 History of Any Multi-Drug Resistant Organisms: None Reported Past Surgical History: Appendectomy Past Anesthesia/Blood Transfusion Reactions: No Reported Reaction Past Psychological History: No Psychological Hx Reported Smoking Status: Former smoker Past Alcohol Use History: Rare Past Drug Use History: None Reported - Past Family History Mother Additional Family Medical History / Comment(s): bladder cancer General Exam Limitations: altered mental status General appearance: alert, anxious, other (agitated) Head exam: Present: atraumatic, normocephalic, normal inspection Respiratory exam: Present: normal lung sounds bilaterally. Absent: respiratory distress, wheezes, rales, rhonchi, stridor Cardiovascular Exam: Present: regular rate, normal rhythm, normal heart sounds. Absent: systolic murmur, diastolic murmur, rubs, gallop, clicks Neurological exam: Present: alert Psychiatric exam: Present: agitated Skin exam: Present: other (Ecchymosis to the bilateral upper extremities) Course Vital Signs 10/15/22 10/15/22 10/15/22 05:27 08:00 08:04 Temperature 98.2 F Pulse Rate 84 57 L 71 Respiratory 20 14 Rate Blood Pressure 160/82 98/70 O2 Sat by Pulse 96 97 Oximetry 10/15/22 10/15/22 10/15/22 10:00 11:00 12:00 Temperature Pulse Rate 64 61 53 L Respiratory 16 16 16 Rate Blood Pressure 98/70 102/65 90/57 O2 Sat by Pulse 98 96 99 Oximetry 10/15/22 10/15/22 10/15/22 13:00 14:00 14:29 Temperature 97.6 F Pulse Rate 75 54 L Respiratory 16 16 Rate Blood Pressure 98/62 104/65 O2 Sat by Pulse 96 97 Oximetry Medical Decision Making - Medical Decision Making This is a 42-year-old female who presents to the emergency department for altered mental status. Was pt. sent in by a medical professional or institution? @ -No Did you speak to anyone other than the patient for history? @ -Her provided all of the history Did you review nursing and triage notes? @ -Yes, and I agree, it is accurate with regards to the patient's symptoms. Were old charts reviewed? @ -No Differential Diagnosis? @ -Differential Altered Mental Status: Hypoglycemia, DKA, hypercapnia, ETOH, overdose, CO poisoning, trauma, myxedema coma, HTN encephalopathy, infection, encephalitis, psychosis, intercranial hemorrhage, hepatic encephalopathy, meningitis, CVA, this is not meant to be an all-inclusive list EKG interpreted by me (3pts min.)? @ -EKG interpreted by me demonstrating the following: Sinus rhythm. Ventricular rate 81 bpm, OR interval 169 ms, QRS duration 69 ms, QTC 464 ms. X-rays interpreted by me (1pt min.)? @ -Chest x-ray obtained, my interpretation identifies no localized consolidations or infiltrates. CT interpreted by me (1pt min.)? @ -Computed tomography scan of the brain obtained. My interpretation identifies no evidence of an acute intracranial hemorrhage or mass effect. U/S interpreted by me (1pt. min.)? @ -Not obtained What testing was considered but not performed? (CT, X-rays, U/S, labs)? Why? @ -None What meds were considered but not given? Why? @ -None Did you discuss the management of the patient with other professionals? @ -Yes, Dr. Yanes, who accepts the patient for admission. Did you reconcile home meds? @ -No Was smoking cessation discussed for >3mins.? @ -No Was critical care preformed (if so, how long)? @ -No Were there social determinants of health that impacted care today? How? (Homelessness, low income, unemployed, alcoholism, drug addiction, tr ansportation, low edu. Level, literacy, decrease access to med. care, [facility], rehab)? @ -No Was there de-escalation of care discussed even if they declined? (Discuss DNR or withdrawal of care, Hospice)? @ -No What co-morbidities impacted this encounter? (DM, HTN, Smoking, COPD, CAD, Cancer, CVA, Hep., AIDS, mental health diagnosis, sleep apnea, morbid obesity)? @ -Hx of anoxic brain injury Was patient admitted / discharged? @ -Admitted. Lab work obtained and found to be nonactionable, including a negative ammonia level. Urinalysis negative for signs of infection. Patient was very agitated on arrival and tried to get up to leave multiple times. She was also making bizarre statements. She did require a B-52 injection with Ativan, Haldol, and Benadryl, and was found to be resting comfortably afterwards. Chest x-ray reveals a possible small subpulmonic effusion on the right without other acute process. Computed tomography scan of the brain obtained revealing no acute findings. The cause of the patient's altered mental status is not entirely clear at this time. Patient admitted to medicine for further management. Consult placed for neurology. Undiagnosed new problem with uncertain prognosis? @ -None Drug Therapy requiring intensive monitoring for toxicity (Heparin, Nitro, Insulin, Cardizem)? @ -None Were any procedures done? @ -None Diagnosis/symptom? @ -AMS Acute, or Chronic, or Acute on Chronic? @ -Acute Uncomplicated (without systemic symptoms) or Complicated (systemic symptoms)? @ -Complicated Side effects of treatment? @ -None Exacerbation, Progression, or Severe Exacerbation] @ -Not applicable Poses a threat to life or bodily function? @ -Yes This case was discussed in detail with the attending ED physician, Dr. Davison. Presentation, findings, and treatment plan discussed in detail as well. - Lab Data Result diagrams: 10/15/22 06:47 10/15/22 06:47 Lab Results 10/15/22 10/15/22 10/15/22 Range/Units 06:47 06:47 06:47 WBC 6.0 (3.8-10.6) k/uL RBC 3.75 L (3.80-5.40) m/uL Hgb 12.2 (11.4-16.0) gm/dL Hct 35.5 (34.0-46.0) % MCV 94.8 (80.0-100.0) fL MCH 32.5 (25.0-35.0) pg MCHC 34.3 (31.0-37.0) g/dL RDW 12.2 (11.5-15.5) % Plt Count 207 (150-450) k/uL MPV 8.0 Neutrophils % 67 % Lymphocytes % 21 % Monocytes % 8 % Eosinophils % 2 % Basophils % 0 % Neutrophils # 4.1 (1.3-7.7) k/uL Lymphocytes # 1.3 (1.0-4.8) k/uL Monocytes # 0.5 (0-1.0) k/uL Eosinophils # 0.1 (0-0.7) k/uL Basophils # 0.0 (0-0.2) k/uL PT 10.4 (9.0-12.0) sec INR 1.0 (<1.2) APTT 22.1 (22.0-30.0) sec Sodium 140 (137-145) mmol/L Potassium 3.5 (3.5-5.1) mmol/L Chloride 110 H (98-107) mmol/L Carbon Dioxide 21 L (22-30) mmol/L Anion Gap 9 mmol/L BUN 15 (7-17) mg/dL Creatinine 0.85 (0.52-1.04) mg/dL Est GFR (CKD-EPI)AfAm >90 (>60 ml/min/1.73 sqM) Est GFR (CKD-EPI)NonAf 84 (>60 ml/min/1.73 sqM) Glucose 92 (74-99) mg/dL Calcium 8.3 L (8.4-10.2) mg/dL Total Bilirubin 0.5 (0.2-1.3) mg/dL AST 30 (14-36) U/L ALT 26 (4-34) U/L Alkaline Phosphatase 65 (38-126) U/L Ammonia (<30) umol/L Troponin I (0.000-0.034) ng/mL Total Protein 6.4 (6.3-8.2) g/dL Albumin 3.7 (3.5-5.0) g/dL Urine Color Urine Appearance (Clear) Urine pH (5.0-8.0) Ur Specific [place] (1.001-1.035) Urine Protein (Negative) Urine Glucose (UA) (Negative) Urine Ketones (Negative) Urine Blood (Negative) Urine Nitrite (Negative) Urine Bilirubin (Negative) Urine Urobilinogen (<2.0) mg/dL Ur Leukocyte Esterase (Negative) Urine RBC (0-5) /hpf Urine WBC (0-5) /hpf Ur Squamous Epith Cells (0-4) /hpf Urine Bacteria (None) /hpf Urine Mucus (None) /hpf Urine Opiates Screen (NotDetected) Ur Oxycodone Screen (NotDetected) Urine Methadone Screen (NotDetected) Ur Propoxyphene Screen (NotDetected) Ur Barbiturates Screen (NotDetected) U Tricyclic Antidepress (NotDetected) Ur Phencyclidine Scrn (NotDetected) Ur Amphetamines Screen (NotDetected) U Methamphetamines Scrn (NotDetected) U Benzodiazepines Scrn (NotDetected) Urine Cocaine Screen (NotDetected) U Marijuana (THC) Screen (NotDetected) 10/15/22 10/15/22 10/15/22 Range/Units 06:47 06:47 09:42 WBC (3.8-10.6) k/uL RBC (3.80-5.40) m/uL Hgb (11.4-16.0) gm/dL Hct (34.0-46.0) % MCV (80.0-100.0) fL MCH (25.0-35.0) pg MCHC (31.0-37.0) g/dL RDW (11.5-15.5) % Plt Count (150-450) k/uL MPV Neutrophils % % Lymphocytes % % Monocytes % % Eosinophils % % Basophils % % Neutrophils # (1.3-7.7) k/uL Lymphocytes # (1.0-4.8) k/uL Monocytes # (0-1.0) k/uL Eosinophils # (0-0.7) k/uL Basophils # (0-0.2) k/uL PT (9.0-12.0) sec INR (<1.2) APTT (22.0-30.0) sec Sodium (137-145) mmol/L Potassium (3.5-5.1) mmol/L Chloride (98-107) mmol/L Carbon Dioxide (22-30) mmol/L Anion Gap mmol/L BUN (7-17) mg/dL Creatinine (0.52-1.04) mg/dL Est GFR (CKD-EPI)AfAm (>60 ml/min/1.73 sqM) Est GFR (CKD-EPI)NonAf (>60 ml/min/1.73 sqM) Glucose (74-99) mg/dL Calcium (8.4-10.2) mg/dL Total Bilirubin (0.2-1.3) mg/dL AST (14-36) U/L ALT (4-34) U/L Alkaline Phosphatase (38-126) U/L Ammonia 10 (<30) umol/L Troponin I <0.012 (0.000-0.034) ng/mL Total Protein (6.3-8.2) g/dL Albumin (3.5-5.0) g/dL Urine Color Urine Appearance (Clear) Urine pH (5.0-8.0) Ur Specific [place] (1.001-1.035) Urine Protein (Negative) Urine Glucose (UA) (Negative) Urine Ketones (Negative) Urine Blood (Negative) Urine Nitrite (Negative) Urine Bilirubin (Negative) Urine Urobilinogen (<2.0) mg/dL Ur Leukocyte Esterase (Negative) Urine RBC (0-5) /hpf Urine WBC (0-5) /hpf Ur Squamous Epith Cells (0-4) /hpf Urine Bacteria (None) /hpf Urine Mucus (None) /hpf Urine Opiates Screen Not Detected (NotDetected) Ur Oxycodone Screen Not Detected (NotDetected) Urine Methadone Screen Not Detected (NotDetected) Ur Propoxyphene Screen Not Detected (NotDetected) Ur Barbiturates Screen Not Detected (NotDetected) U Tricyclic Antidepress Not Detected (NotDetected) Ur Phencyclidine Scrn Not Detected (NotDetected) Ur Amphetamines Screen Not Detected (NotDetected) U Methamphetamines Scrn Not Detected (NotDetected) U Benzodiazepines Scrn Detected H (NotDetected) Urine Cocaine Screen Not Detected (NotDetected) U Marijuana (THC) Screen Not Detected (NotDetected) 10/15/22 Range/Units 09:42 WBC (3.8-10.6) k/uL RBC (3.80-5.40) m/uL Hgb (11.4-16.0) gm/dL Hct (34.0-46.0) % MCV (80.0-100.0) fL MCH (25.0-35.0) pg MCHC (31.0-37.0) g/dL RDW (11.5-15.5) % Plt Count (150-450) k/uL MPV Neutrophils % % Lymphocytes % % Monocytes % % Eosinophils % % Basophils % % Neutrophils # (1.3-7.7) k/uL Lymphocytes # (1.0-4.8) k/uL Monocytes # (0-1.0) k/uL Eosinophils # (0-0.7) k/uL Basophils # (0-0.2) k/uL PT (9.0-12.0) sec INR (<1.2) APTT (22.0-30.0) sec Sodium (137-145) mmol/L Potassium (3.5-5.1) mmol/L Chloride (98-107) mmol/L Carbon Dioxide (22-30) mmol/L Anion Gap mmol/L BUN (7-17) mg/dL Creatinine (0.52-1.04) mg/dL Est GFR (CKD-EPI)AfAm (>60 ml/min/1.73 sqM) Est GFR (CKD-EPI)NonAf (>60 ml/min/1.73 sqM) Glucose (74-99) mg/dL Calcium (8.4-10.2) mg/dL Total Bilirubin (0.2-1.3) mg/dL AST (14-36) U/L ALT (4-34) U/L Alkaline Phosphatase (38-126) U/L Ammonia (<30) umol/L Troponin I (0.000-0.034) ng/mL Total Protein (6.3-8.2) g/dL Albumin (3.5-5.0) g/dL Urine Color Light Red Urine Appearance Clear (Clear) Urine pH 5.5 (5.0-8.0) Ur Specific [place] 1.023 (1.001-1.035) Urine Protein 1+ H (Negative) Urine Glucose (UA) Negative (Negative) Urine Ketones Trace H (Negative) Urine Blood Negative (Negative) Urine Nitrite Negative (Negative) Urine Bilirubin Negative (Negative) Urine Urobilinogen <2.0 (<2.0) mg/dL Ur Leukocyte Esterase Negative (Negative) Urine RBC 3 (0-5) /hpf Urine WBC 1 (0-5) /hpf Ur Squamous Epith Cells <1 (0-4) /hpf Urine Bacteria Rare H (None) /hpf Urine Mucus Few H (None) /hpf Urine Opiates Screen (NotDetected) Ur Oxycodone Screen (NotDetected) Urine Methadone Screen (NotDetected) Ur Propoxyphene Screen (NotDetected) Ur Barbiturates Screen (NotDetected) U Tricyclic Antidepress (NotDetected) Ur Phencyclidine Scrn (NotDetected) Ur Amphetamines Screen (NotDetected) U Methamphetamines Scrn (NotDetected) U Benzodiazepines Scrn (NotDetected) Urine Cocaine Screen (NotDetected) U Marijuana (THC) Screen (NotDetected) - Radiology Data Radiology results: report reviewed, image reviewed Disposition Clinical Impression: Altered mental status Disposition: ADMITTED IP TO THIS HOSP
[2022-10-15 06:55] LABS: Basophils % (A) 0 %; Eosinophils # (A) 0.1 k/uL (0-0.7); Eosinophils % (A) 2 %; HCT 35.5 % (34.0-46.0); HGB 12.2 gm/dL (11.4-16.0); Lymphocytes # (A) 1.3 k/uL (1.0-4.8); Lymphocytes % (A) 21 %; MCH 32.5 pg (25.0-35.0); MCHC 34.3 g/dL (31.0-37.0); MCV 94.8 fL (80.0-100.0); Monocytes # (A) 0.5 k/uL (0-1.0); Monocytes % (A) 8 %; Neutrophils # (A) 4.1 k/uL (1.3-7.7); Neutrophils % (A) 67 %; Platelet Count 207 k/uL (150-450); RBC 3.75 m/uL (3.80-5.40); RDW 12.2 % (11.5-15.5)
[2022-10-15 07:04] LABS: ALT 26 U/L (4-34); AST 30 U/L (14-36); African American GFR (CKD) >90 (>60 ml/min/1.73 sqM); Albumin 3.7 g/dL (3.5-5.0); Alkaline Phosphatase 65 U/L (38-126); Anion Gap 9 mmol/L; Blood Urea Nitrogen 15 mg/dL (7-17); Calcium 8.3 mg/dL (8.4-10.2); Carbon Dioxide 21 mmol/L (22-30); Chloride 110 mmol/L (98-107); Glucose 92 mg/dL (74-99); Non-African American GFR(CKD) 84 (>60 ml/min/1.73 sqM); Potassium 3.5 mmol/L (3.5-5.1); Sodium 140 mmol/L (137-145); Total Bilirubin 0.5 mg/dL (0.2-1.3); Total Protein 6.4 g/dL (6.3-8.2)
[2022-10-15 07:05] LABS: Partial Thromboplastin Time 22.1 sec (22.0-30.0); Prothrombin Time 10.4 sec (9.0-12.0)
--- NOTE | 2022-10-15 08:02 | XR ---
EXAMINATION TYPE: XR chest 1V portable DATE OF EXAM: 10/15/2022 COMPARISON: None INDICATION: Acute mental status change TECHNIQUE: Single frontal view of the chest is obtained. FINDINGS: The heart size is normal. The pulmonary vasculature is normal. Small subpulmonic effusion may be present on the right. Lungs otherwise appear clear IMPRESSION: 1. Small subpulmonic effusion suspected on the right. 2. Suspicious pulmonary process is not otherwise evident.
[2022-10-15] MEDS ORDERED: SODIUM CHLORIDE 0.9% 1,000 ML IV STA (09:23)
--- NOTE | 2022-10-15 09:25 | CT ---
EXAMINATION TYPE: CT brain wo con DATE OF EXAM: 10/15/2022 COMPARISON: 09/02/2022 INDICATION: TBI-agressive behavior DLP: 1055 mGycm, Automated exposure control for dose reduction was used. CONTRAST: None CT of the brain is performed utilizing 3 mm thick sections through the posterior fossa and 3 mm thick sections through the remaining calvarium. Study is performed within 24 hours of arrival to the hosp ital. No abnormal hyperdensity is present to suggest an acute intracranial hemorrhage. No mass lesion is evident. No acute infarcts are evident. There is some mild hypodensity adjacent to the anterior horn left late ral ventricle appears to be some chronic white matter change present previously. Ventricles and sulci are appropriate for the patient age. Paranasal sinuses and mastoid air cells within the [id number] are clear. IMPRESSIONS: 1. Mild chronic appearing white matter change. 2. No acute intracranial process. 3. Follow-up MRI can be performed as clinically indicated.
[2022-10-15 10:04] LABS: Appearance,Urine Clear (Clear); Bilirubin,Urine Negative (Negative); Color,Urine Light Red; Glucose,Urine (UA) Negative (Negative); Ketones,Urine Trace (Negative); PH, Urine 5.5 (5.0-8.0); Protein,Urine 1+ (Negative); Specific Gravity,Urine 1.023 (1.001-1.035)
[2022-10-15 10:05] LABS: Bacteria,Urine Rare /hpf; Blood,Urine Negative (Negative); Leukocyte Esterase,Urine Negative (Negative); Mucus,Urine Few /hpf; Nitrite,Urine Negative (Negative); RBC,Urine 3 /hpf (0-5); Squamous Epithelial Cell,Urine <1 /hpf (0-4); Urobilinogen,Urine <2.0 mg/dL (<2.0); WBC,Urine 1 /hpf (0-5)
[2022-10-15 10:06] LABS: Amphetamine Screen,Urine Not Detected (NotDetected); Barbiturate Screen,Urine Not Detected (NotDetected); Benzodiazepines Screen,Urine Detected (NotDetected); Cocaine Screen,Urine Not Detected (NotDetected); Methadone Screen, Urine Not Detected (NotDetected); Opiate Screen,Urine Not Detected (NotDetected); Oxycodone Screen, Urine Not Detected (NotDetected); Phencyclidine Screen,Urine Not Detected (NotDetected); Tricyclic Antidepressant,Urine Not Detected (NotDetected); Urn Cannabinoid Scrn Not Detected (NotDetected)
[2022-10-15] MEDS ORDERED: ACETAMINOPHEN TAB 325 MG TAB PO PRN (10:47)
[2022-10-15] MEDS ORDERED: IBUPROFEN 400 MG TAB PO PRN (10:47)
[2022-10-15] MEDS ORDERED: ONDANSETRON 4 MG/2 ML VIAL IVP PRN ×2 (10:47→10:48)
[2022-10-15] MEDS ORDERED: KETOROLAC 15 MG/ML 1 ML VIAL IVP PRN ×2 (10:47→10:48)
[2022-10-15] MEDS ORDERED: NALOXONE 0.4 MG/ML 1 ML VIAL IV PRN ×2 (10:47→10:48)
[2022-10-15] MEDS: SODIUM CHLORIDE 0.9% 1,000 ML IV SCH ×2 (12:24→22:53)
--- NOTE | 2022-10-15 13:16 | P.CNNES ---
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 History is obtained from medical record. She is known to our neurology team in which we seen the patient last on 09/04/2022. notified the ED team that for the last 2 days the patient has been having altered mental status and tending to be seen by her neurologist Dr. Paredes which she has an appointment in 4 weeks from now. Upon asking the patient will present in the hospital she states she doesn't know. Upon ask her what is the last thing she remembers she was very quiet and did not respond. She denies of any urinary or bowel incontinence. Denied of any tongue bite. She is unable to give me the history. She stated that she is on Keppra but could not tell me the dose. It seems that the while she was in the ED per the ED team she tried multiple times to get up and leave. Of note she was last seen by Dr. Lewis on 09/04/2021 for altered mental status and he felt was due to underlying recurrent urinary tract infection and medication effect (Cephalosporin) her ammonia at that time was 91 and he stated that he cannot exclusively rule out underlying epilepsy. At that time she was on Keppra 1000 mg every 12 hours. Amy Leiws recommended to taper down the Keppra since the patient does not have any history of clinical seizure in the past and the Keppra was started for her tremors and the patient is having some behavioral issues as well. He recommended to have for the Keppra to be tapered and not completely stop until she is seen by a neurologist. He is referred to our notes for further details Other workup during his hospital visit consisted of: Initial temperature is 98.2, heart rate of the 84, respiratory of 20, blood pressure 160/82 and the pulse ox of 96 at room air. Her claude blood cells 3.75 otherwise rest of CBC with differential is unremarkable Current access 21, chloride is 110, calcium is 8.3 otherwise rest of the chemistry panel is unremarkable. Ammonia is less than 10 Urine drug screen is positive for benzo otherwise rest as nondetected. CT of the head is reported as mild chronic-appearing white matter change. No acute intracranial process. Follow-up MRI can be performed as clinically indicated. I personally reviewed the CT abdomen there is no acute or subacute ischemia. There is no temporal hemorrhage. Review of Systems Review of systems Limited but the pertinent positive and negative as per HPI. Past Medical History Past Medical History: Deep Vein Thrombosis (DVT), Pulmonary Embolus (PE) Additional Past Medical History / Comment(s): TBI 2020 History of Any Multi-Drug Resistant Organisms: None Reported Past Surgical History: Appendectomy Past Anesthesia/Blood Transfusion Reactions: No Reported Reaction Past Psychological History: No Psychological Hx Reported Smoking Status: Former smoker Past Alcohol Use History: Rare Past Drug Use History: None Reported - Past Family History Mother Additional Family Medical History / Comment(s): bladder cancer Medications and Allergies Home Medications Medication Instructions Recorded Confirmed Type Cephalexin [Keflex] 500 mg PO Q12HR 09/02/22 09/02/22 History Donepezil [Aricept] 10 mg PO HS 09/02/22 09/02/22 History amantadine HCL [Amantadine] 100 mg PO BID 09/02/22 09/02/22 History levETIRAcetam 1,000 mg PO Q12HR 09/02/22 09/02/22 History Acetaminophen Tab [Tylenol] 650 mg PO Q6HR PRN tab 09/04/22 Rx QUEtiapine [SEROquel] 25 mg PO HS #30 tab 09/04/22 Rx levETIRAcetam [Keppra] 500 mg PO DIRECTED #60 tab 09/04/22 Rx Ibuprofen [Motrin] 800 mg PO Q8H #30 tab 09/29/22 Rx Allergies Allergy/AdvReac Type Severity Reaction Status Date / Time Penicillins Allergy Rash/Hives Verified 10/15/22 05:33 Physical Examination - Vital Signs Vital Signs: Vital Signs Temp Pulse Resp BP Pulse Ox 10/15/22 08:00 57 L 14 98/70 97 10/15/22 05:27 98.2 F 84 20 160/82 96 Intake and Output 10/14/22 10/15/22 10/15/22 22:59 06:59 14:59 Other: Weight 52.163 kg GENERAL: The patient is lying in bed and is not in acute distress. INTEGUMENTARY: Has multiple bruises over the right>left upper extremity and appears small darks in discoloration in forearms. PSYCH: Flat affect. NEUROLOGICAL: Limited because of her cooperation. Higher mental function: The patient is awake, alert, oriented to self, place and time. She correctly stated she was in [facility]. Patient is following simple commands. Language was limited but does not appear aphasic. No neglect. Cranial nerves: The pupils are round, equal and reactive to light. Visual waters are full to confrontation throughout. Extraocular movement is intact no nystagmus is noted. Facial sensation is normal to touch throughout. The facial strength is normal throughout. Tongue is midline and moved [id number] without any difficulty. No evidence of tongue bite. No dysarthria is noted. Shoulder shrug is normal bilaterally. Motor: The strength is 5 over 5 throughout. Normal tone and bulk. Cerebellum: Normal finger to nose heel to chin bilaterally. Sensation: Sensation is normal to touch throughout. Reflexes (right/left): 2+ throughout. Results - Laboratory Findings CBC and BMP: 10/15/22 06:47 10/15/22 06:47 Abnormal Lab Findings: Abnormal Labs 10/15/22 10/15/22 10/15/22 06:47 06:47 09:42 RBC 3.75 L Chloride 110 H Carbon Dioxide 21 L Calcium 8.3 L Urine Protein Urine Ketones Urine Bacteria Urine Mucus U Benzodiazepines Scrn Detected H 10/15/22 09:42 RBC Chloride Carbon Dioxide Calcium Urine Protein 1+ H Urine Ketones Trace H Urine Bacteria Rare H Urine Mucus Few H U Benzodiazepines Scrn Assessment and Plan Assessment: This is a 42-year-old woman with history of traumatic brain injury/short-term memory loss as a result of cardiopulmonary arrest from pulmonary embolism in 2019, 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 notified the ED team that the patient has been confused for the last 2 days. * Encephalopathy of unknown etiology: Unsure if patient had seizure at home. She has multiple bruises of the bilateral upper extremity mostly the right than the left. This time no elevated ammonia or UTI. * History of confusion and was seen by our team at end of 08/2022 and it was felt due to her recurrent UTI, elevated ammonia and medication effect (cyclsporine). Was notified to taper Keppra but not completely go off until seen by neurologist since no history of epileptic seizure and having behavioral issues. * History of tremors as a sequela from the cardiopulmonary arrest due to the p ulmonary embolism 2019 and had extensive testing in the past and was told it was nonepileptic. She was placed on Keppra in the past by her neurologist. * History of traumatic brain injury due to cardiopulmonary arrest * History of cardiopulmonary arrest due to pulmonary embolism in 2019 * History of Pulmonary embolism and was on eliquis. * History of recurrent UTI Plan: Patient has history of confusion and was seen last by Dr. Castellon on by Dr. Castellon on 09/04/2022 he felt due to her recurrent UTI, elevated ammonia and medication effect (cyclsporine) but cannot exclusively rule out seizure. Was notified to taper Keppra but not completely go off until seen by neurologist since no history of epileptic seizure and having behavioral issues. I am not sure what dose of Keppra she is on. I attempted to contact to her and son via phone and no one responded. In the mean time, I placed her on Keppra 500mg bid. I would recommend consideration of starting Lamictal which helps with seizures and mood/behavioral. Depakote is another option but has alot of side-effects. Will find out with family if she was tried on it in past besides Keppra. I ordered a routine EEG which will be performed tomorrow Ordered the lactic acid vein, prolactin, ESR, CRP, vitamin B-12 and folate level. Ordered Keppra level. Placed on seizure precautions seizure pads We'll defer the rest of the neurological workup to the primary team She is pending to be seen by Dr. Paredes as outpatient within 4 weeks per ED note. The plan is discussed with patient's Primary attending. As stated above, I attempted to contact her and son but no response. Thank you for the consultation. Dr. Castellon will start neurology service tomorrow A.M. Time with Patient: Greater than 30
--- NOTE | 2022-10-15 14:11 | P.HPIM ---
History of Present Illness H&P Date: 10/15/22 * 42-year-old lady with past medical history of cognitive impairment secondary to traumatic brain injury, previous history of cardiopulmonary arrest with history of pulmonary embolism in 2019, history of tremors as a sequel of cardiopulmonary arrest, presented to the emergency department with altered mentation. Patient is not the best historian and no family at bedside history obtained from nursing staff as well as from medical records and partly from patient. * He was recently admitted in August for similar presentation. Patient had workup done during previous hospitalization it was deemed that her symptoms at that time was secondary to urinary tract infection * During this hospitalization patient presents with altered mentation and disoriented behavior. Patient required Ativan in ER. * CT head obtained negative for acute intracranial process. * Upon evaluation patient does not look infectious afebrile hemodynamically stable on room air * Chest x-ray does show a small right side effusion however not clinically significant at this point * urine drug screen was positive for benzo however that was secondary to benzo given in ER. * Ammonia level was within normal limits. * She admitted to medical floor with consultation to be obtained from neurology Review of Systems REVIEW OF SYSTEMS: Tremors, confusion CONSTITUTIONAL: No fever, no malaise, no fatigue. CARDIOVASCULAR: No chest pain, orthopnea, PND, no palpitations, no syncope. PULMONARY: No shortness of breath, s. GASTROINTESTINAL: , no nausea, no vomiting, no abdominal pain. NEUROLOGICAL: No headaches, GENITOURINARY: Denies any burning micturition, frequency, or urgency. Past Medical History Past Medical History: Deep Vein Thrombosis (DVT), Pulmonary Embolus (PE) Additional Past Medical History / Comment(s): TBI 2019 History of Any Multi-Drug Resistant Organisms: None Reported Past Surgical History: Appendectomy Past Anesthesia/Blood Transfusion Reactions: No Reported Reaction Past Psychological History: No Psychological Hx Reported Smoking Status: Former smoker Past Alcohol Use History: Rare Past Drug Use History: None Reported - Past Family History Mother Additional Family Medical History / Comment(s): bladder cancer Medications and Allergies Home Medications Medication Instructions Recorded Confirmed Type Donepezil [Aricept] 5 mg PO BID 09/02/22 10/15/22 History amantadine HCL [Amantadine] 100 mg PO DAILY 09/02/22 10/15/22 History Ibuprofen [Motrin] 800 mg PO Q8H PRN 10/15/22 10/15/22 History Zolpidem [Ambien] 5 mg PO HS 10/15/22 10/15/22 History levETIRAcetam [Keppra] 500 mg PO BID 10/15/22 10/15/22 History Allergies Allergy/AdvReac Type Severity Reaction Status Date / Time Penicillins Allergy Rash/Hives Verified 10/15/22 13:44 Physical Exam Vitals: Vital Signs Temp Pulse Resp BP Pulse Ox 10/15/22 08:00 57 L 14 98/70 97 10/15/22 05:27 98.2 F 84 20 160/82 96 Intake and Output 10/14/22 10/15/22 10/15/22 22:59 06:59 14:59 Other: Weight 52.163 kg PHYSICAL EXAMINATION: GENERAL: The patient is alert and oriented x2 , ill appearance, generalized tremors noted HEENT: Pupils are round and equally reacting to light. EOMI. . Normocephalic, atraumatic. CARDIOVASCULAR: S1 and S2 present. No murmurs, rubs, or gallops. PULMONARY: Chest is clear to auscultation, no wheezing or crackles. ABDOMEN: Soft, nontender, nondistended, normoactive bowel sounds. No palpable organomegaly. MUSCULOSKELETAL: No joint swelling or deformity. EXTREMITIES: No cyanosis, clubbing, or pedal edema. NEUROLOGICAL: Gross neurological examination did not reveal any focal deficits. Does have mild tremors motor strength is 5 over 5 bilateral upper and lower extremity Results CBC & Chem 7: 10/15/22 06:47 10/15/22 06:47 Labs: Abnormal Lab Results - Last 24 Hours (Table) 10/15/22 10/15/22 10/15/22 Range/Units 06:47 06:47 09:42 RBC 3.75 L (3.80-5.40) m/uL Chloride 110 H (98-107) mmol/L Carbon Dioxide 21 L (22-30) mmol/L Calcium 8.3 L (8.4-10.2) mg/dL Urine Protein (Negative) Urine Ketones (Negative) Urine Bacteria (None) /hpf Urine Mucus (None) /hpf U Benzodiazepines Scrn Detected H (NotDetected) 10/15/22 Range/Units 09:42 RBC (3.80-5.40) m/uL Chloride (98-107) mmol/L Carbon Dioxide (22-30) mmol/L Calcium (8.4-10.2) mg/dL Urine Protein 1+ H (Negative) Urine Ketones Trace H (Negative) Urine Bacteria Rare H (None) /hpf Urine Mucus Few H (None) /hpf U Benzodiazepines Scrn (NotDetected) Assessment and Plan Assessment: Assessment and plan * Acute encephalopathy rule out seizure * History of traumatic brain injury with chronic tremors * History of pulmonary embolism on anticoagulation previously * History of cardiopulmonary arrest 2019 * In regards to acute encephalopathy, CT head obtained negative for acute in tracranial process. Neurology consulted, EEG ordered * Follow up on Keppra levels, etc. continued, follow-up on ESR, vitamin B12, folate levels * In regards to history of tremors continue patient on amantadine, continue patient on donepezil * SCDs for DVT prophylaxis, Lovenox for prophylactic for DVT as well * Status is full code * Will need physical therapy evaluation
[2022-10-15] MEDS: levETIRAcetam 500 MG TAB PO SCH ×2 (14:26→22:58)
[2022-10-15] MEDS ORDERED: ZOLPIDEM 5 MG TAB PO SCH (21:00)
[2022-10-15] MEDS: DONEPEZIL 5 MG TAB PO SCH (22:58)
[2022-10-16] MEDS: ENOXAPARIN 40 MG/0.4 ML SYRINGE SQ SCH (09:09)
[2022-10-16] MEDS: DONEPEZIL 5 MG TAB PO SCH ×2 (09:09→20:41)
[2022-10-16] MEDS: levETIRAcetam 500 MG TAB PO SCH (09:09)
[2022-10-16] MEDS ORDERED: MELATONIN 3 MG TABLET PO PRN (11:28)
[2022-10-16] MEDS ORDERED: CALCIUM CARBONATE 500 MG CHEWABLE PO PRN (11:28)
[2022-10-16] MEDS ORDERED: LACTULOSE 20 GM/30 ML CUP PO PRN (11:28)
--- NOTE | 2022-10-16 14:51 | P.CN ---
Psychiatric Consult - . Consult date: 10/16/22 Consult:: 10/16/22 14:12 IDENTIFYING DATA: This patient is a 42-year-old female, currently , lives with her and 2 kids in a house REASON FOR REFERRAL: Psychiatry was consulted for "anxiety and delusions" HISTORY OF PRESENT ILLNESS: The patient presented to the hospital initially on 09/02 for ams, confusion and then readmitted on 10/15 for similar issues. patient has a significant hx of hypoxic brain injury. patient apparently has been having increasing agitation and aggression at home and more confused lately for the past few weeks. On last admission patient had hyperammonemia and also a urinary tract infection and was delirious. Patient apparently is still waiting on her outpatient neurology appointment. Patient was apparently agitated in the ER and needed prn doses of Ativan, Haldol and also Benadryl. Patient had a computed tomography scan of her brain which was negative, urinary drug screen was positive for benzodiazepines. Patient did not have UTI present on urinalysis. Ammonia level was within normal limits. Patient was seen lying in bed and looking at television, poor eye contact and constricted affect. She was fairly concrete with her answers and answers only some of them appropriately. She states that there was "stuff missing in the house" and when prompted more she states that "it was my classes". Patient was sitting with her son and her at the bedside. She was a fairly poor historian did not know why she came to the hospital. She knows her age her name and date of . She knows today's date however was looking at the board. She was minimizing her symptoms and claims that "I didn't do anything". Claims that she is not having depression or anxiety. His other sleep and appetite are poor. At this time patient denies any suicidal or homical ideations, intent or plan. Patient denies any auditory, visual hallucinations and denies any paranoia or delusions. Patients admits to using no rec drugs or ciagrettes. patient and son state that patient has been delusional at home, aggressive at times and also endorisng paranoia about her money being stolen. PAST PSYCHIATRIC HISTORY: Patient has a a history of hypoxic brain injury. Patient denies being on any psychiatric medications, however currently on seroquel qhs. Patient denies any previous psychiatric hospitalizations. Patient denies any psychiatric outpatient follow-up. Patient denies any history of suicide attempts in the past. Past Medical History: No Reported History Additional Past Medical History / Comment(s): TBI 2020 History of Any Multi-Drug Resistant Organisms: None Reported Past Surgical History: Appendectomy Past Psychological History: No Psychological Hx Reported Smoking Status: Current every day smoker Past Alcohol Use History: Occasional Past Drug Use History: None Reported ALLERGIES: as per EMR. CHEMICAL DEPENDENCY HISTORY: as per HPI. FAMILY PSYCHIATRIC/SUBSTANCE USE HISTORY: denies SOCIAL HISTORY: Patient was born and raised in [place], [place]. she claims that s he completed high school, did some college, denies any legal hx. she currently lives with her and 2 kids at home. MENTAL STATUS EXAM: General Appearance: Patient appears to be mildly tremulous, stated age is alert, poor eye contact, superficially cooperative. Patient appears to have fair hygiene and grooming wearing hospital gown Behavior: Patient is calmly lying in bed without any agitated behavior. He proficiently cooperative. Nonchalant. Speech: Patient's speech is fluent and nonpressured. monotone, concrete Mood/Affect: Patient reports their mood is "ok", affect is congruent and constricted Suicidality/Homicidality: Patient denies having any suicidal or homicidal ideation intent or plan. Perceptions: Patient denies any visual hallucinations and denies any auditory hallucinations Though content/process: There is no evidence of any delusional thought content. Corea. Poverty of content. Memory and concentration: AOX3, was able to spell "world" backwards. Judgment and insight: chronically limited IMPRESSIONS: Psychosis unspecified neurocognitive disorder hx of hypoxic brain injury PLAN: -At this time patient DOES NOT meet criteria for inpatient psychiatric admission. -Delirium precautions recommended with patient including - avoiding use of narcotics and PAVER LAYER sedatives, limit anticholinergic medications when possible, frequent re-orientation, minimize use of restraints, open window shades during the day and close them at night -Would recommend the following medication changes/additions: please avoid keppra and other benzos or benzo like sleep meds such as ambien. Start risperdal 1 mg bid for mood stabilization/psychosis, melatonin 6 mg qhs for sleep -networker to provide patient with outpatient mental health/psychiatry resources for appropriate follow up upon discharge -Communicated plan to patient's nurse -Psychiatry will follow along tomorrow -Please contact with any questions. 10/16/22 14:12 10/16/22 14:44
--- NOTE | 2022-10-16 17:43 | P.PN ---
Subjective Progress Note Date: 10/16/22 Patient was initially seen by Dr. Mango Leyva. Please refer to his note for details. Patient is a 42-year-old female known to me from previous admission to the hospital. Patient has history of TBI, and tremors due to cardiopulmonary arrest from PE. Patient is currently on Keppra 500 mg twice a day. Patient's and patient's son were also present today. They mentioned that patient has been having issues with mood swings since August 2022. She had history of cardiac arrest about 3 years ago. Patient had undergone extensive testing and was ruled out for seizures, possible nonepileptic spells. Patient's states that she came to the hospital because she is having "blackout, feels blind, angry, violent", with these episodes lasting for about 10 minutes and then she is back to herself. These episodes are more frequent when she has lack of sleep. These episodes are occurring about 2-4 times a day. He gives her melatonin to help sleep. Patient's believes that when she was taking Keppra 1000 g twice a day, these were not as frequent. However on the last visit the dose of Keppra was decreased to 500 mg twice a day. Patient also has tremors since August 2022. The tremors are sometimes worse, sometimes not as intense. It mainly involves the right hand. Patient is right- hand dominant. If she eats, drinks well, and rest, then does not shake as bad. Patient was evaluated at [facility] with 24 hours EEG monitoring which was reportedly normal. This was done several years ago. Patient's mentioned that she was doing very well since cardiac arrest, able to stay home by herself for 8-10 hours a day. She would get up, makes her breakfast, takes her medication, clean some part of the house. However since August, she has not been able to be left alone by herself. She has been on Keppra for 3 years. Patient has previously seen Dr. Anabella Beck. Patient has an appointment with Dr. Olson on 11/08/2022. Her Ammonia is less than 10 Urine drug screen is positive for benzo otherwise rest as nondetected. CT of the head is reported as mild chronic-appearing white matter change. Objective - Vital Signs Vital signs: Vital Signs Temp 98.0 F 10/16/22 14:55 Pulse 64 10/16/22 14:55 Resp 18 10/16/22 14:55 BP 105/68 10/16/22 14:55 Pulse Ox 96 10/16/22 14:55 FiO2 Intake & Output 10/15/22 10/16/22 10/16/22 18:59 06:59 18:59 Weight 52.163 kg Other: # Voids 1 - Exam Patient is a middle aged female, laying comfortably in the bed. Patient has a very flat affect. Patient's speech and leg which functions are normal. Patient can name and repeat very well. Patient knows it is October 2022 and that she is in [facility]. Her pupils are equal, round and reacting, visual waters are full, extraocular muscles are intact, face is symmetric. Tongue protrudes the midline. No signs of oral trauma. On muscle strength testing there is no pronator drift and the strength is normal in arms and legs distally and proximally. Tone is normal. No rigidity. Patient went out stretched her hands, started having jerking, tremoring of the right upper extremity more than left upper extremity. It then continued when she rested it on her lap. - Labs CBC & Chem 7: 10/15/22 06:47 10/15/22 06:47 Labs: Abnormal Lab Results - Last 24 Hours (Table) 10/15/22 Range/Units 06:47 Prolactin 90.100 H (2.800-29.200) ng/mL Assessment and Plan Assessment: This is a 42-year-old woman with history of traumatic brain injury/short-term memory loss as a result of cardiopulmonary arrest from pulmonary embolism in 2019, tremor is a sequela of cardiopulmonary pulmonary arrest and had extensive testing and was told nonepileptic, history of pulmonary result was on Eliquis p [facility] emergency department because of altered mental status. notified the ED team that the patient has been confused for the last 2 days. * Recurrent transient encephalopathy of unknown etiology: Unsure if patient had seizure at home. She has multiple bruises of the bilateral upper extremity mostly the right than the left. This time no elevated ammonia or UTI. * History of confusion and was seen by our team at end of 08/2022 and it was felt due to her recurrent UTI, elevated ammonia and medication effect (cyclsporine). Was notified to taper Keppra but not completely go off until seen by neurologist since no history of epileptic seizure and having behavioral issues. * History of tremors as a sequela from the cardiopulmonary arrest due to the pulmonary embolism 2019 and had extensive testing in the past and was told it was nonepileptic. She was placed on Keppra in the past by her neurologist. * History of traumatic brain injury due to cardiopulmonary arrest * History of cardiopulmonary arrest due to pulmonary embolism in 2019 * History of Pulmonary embolism and was on eliquis. * History of recurrent UTI, none this time T Plan: Patient has presented with recurrent episodes of psychiatric symptoms, manifesting with blackout, anger, violence, agitation, lasting for about 10 minutes and then she is back to baseline. Exact cause of these episodes uncertain. Rule out psychiatric condition versus partial seizure. She had EEGs performed 2 different times recently which are normal. She had a prolonged EEG performed outpatient few years ago which was also reportedly normal. These spells were relatively better controlled when she was on Keppra 1000 mg twice a day, but has got worse since last admission, when the dose was decreased to 500 mg twice a day. Keppra can produce behavioral side effects, but patient's states that she was doing very well on Keppra 1000 mg twice a day for a few years prior. All symptoms started after she was hospitalized in August 2022. Patient has history of confusion and was seen last by myself on 09/04/2022 at that time it was felt due to her recurrent UTI, elevated ammonia and medication effect (cyclsporine) but cannot exclusively rule out seizure. Was notified to taper Keppra but not completely go off until seen by neurologist since no history of epileptic seizure and having behavioral issues. Patient is resumed on Keppra 500 mg twice a day. Agree with starting Lamictal 25 mg twice a day for 7 days and then increase to 50 mg twice a day. Recommended patient to stop medication if gets any rash. Continue Lamictal at this dose until she follows up with Dr. Olson on 11/08/2022. In the future, Keppra can be tapered off and optimized on Lamictal. Repeat EEG performed today was normal. No epileptiform activity was seen. Lactic acid 0.8, prolactin elevated 90.10, ESR 8, CRP, vitamin B-12 457 and folate level 12.2. Await Keppra level. Placed on seizure precautions seizure pads We'll defer the rest of the neurological workup to the primary team She is pending to be seen by Dr. Paredes as outpatient on 11/08/2022.
--- NOTE | 2022-10-16 20:40 | P.PN ---
Progress Note - Text Progress Note Date: 10/16/22 History of Present Illness H&P Date: 10/15/22 * 42-year-old lady with past medical history of cognitive impairment secondary to traumatic brain injury, previous history of cardiopulmonary arrest with history of pulmonary embolism in 2019, history of tremors as a sequel of cardiopulmonary arrest, presented to the emergency department with altered mentation. Patient is not the best historian and no family at bedside history obtained from nursing staff as well as from medical records and partly from patient. * He was recently admitted in August for similar presentation. Patient had workup done during previous hospitalization it was deemed that her symptoms at that time was secondary to urinary tract infection * During this hospitalization patient presents with altered mentation and disoriented behavior. Patient required Ativan in ER. * CT head obtained negative for acute intracranial process. * Upon evaluation patient does not look infectious afebrile hemodynamically stable on room air * Chest x-ray does show a small right side effusion however not clinically significant at this point * urine drug screen was positive for benzo however that was secondary to benzo given in ER. * Ammonia level was within normal limits. * She admitted to medical floor with consultation to be obtained from neurology 10/16/2022: Patient laying in bed. Somewhat appears distant. Tremors. I weakness the patient walking with the therapist in the hallway. Slow. Did need slight support. There was able to walk. I consult psychiatry because patient having some psychotic symptoms for example asking about that where is her money. Later this afternoon patient was seen by Dr. Ontiveros from psychiatry. 4 psychotic symptoms patient started on Risperdal 1 mg twice a day. I did discuss with Dr. Leiws from neurology. Since the Keppra was only being given for her tremors with no seizure disorder at this point to cut back the Keppra 250 twice a day. We'll see how Risperdal doesn't next 24 hours. Remains then consider adding Mysoline for tremors. Patient did eat about 75%. UA is benign, and no UTI currently. In August of this year when patient was discharged she was on Keppra thousand milligrams every 12. And this tapered down as outpatient. To be followed by neurologist. Active Medications Acetaminophen (Acetaminophen Tab 325 Mg Tab) 650 mg PO Q6HR PRN PRN Reason: Mild Pain or Fever > 100.5 Amantadine HCl (Amantadine Hcl 100 Mg Cap) 100 mg PO DAILY [facility] Last Admin: 10/16/22 09:09 Dose: 100 mg Calcium Carbonate/Glycine (Calcium Carbonate 500 Mg Chewable) 1,000 mg PO Q4HR PRN PRN Reason: Dyspepsia Donepezil HCl (Donepezil 5 Mg Tab) 5 mg PO BID [facility] Last Admin: 10/16/22 09:09 Dose: 5 mg Enoxaparin Sodium (Enoxaparin 40 Mg/0.4 Ml Syringe) 40 mg SQ DAILY [facility] Last Admin: 10/16/22 09:09 Dose: 40 mg Sodium Chloride (Saline 0.9%) 1,000 mls @ 100 mls/hr IV .Q10H [facility] Last Admin: 10/15/22 22:53 Dose: Not Given Ibuprofen (Ibuprofen 400 Mg Tab) 400 mg PO Q6HR PRN PRN Reason: Mild Pain or Fever > 100.5 Ketorolac Tromethamine (Ketorolac 15 Mg/Ml 1 Ml Vial) 15 mg IVP Q6HR PRN PRN Reason: Moderate Pain (Scale 4 to 6) Stop: 10/18/22 10:48 Lactulose (Lactulose 20 Gm/30 Ml Cup) 20 gm PO DAILY PRN PRN Reason: Constipation Levetiracetam (Levetiracetam 250 Mg Tab) 250 mg PO Q12HR [facility] Melatonin (Melatonin 3 Mg Tablet) 6 mg PO HS [facility] Naloxone HCl (Naloxone 0.4 Mg/Ml 1 Ml Vial) 0.2 mg IV Q2M PRN PRN Reason: Opioid Reversal Ondansetron HCl (Ondansetron 4 Mg/2 Ml Vial) 4 mg IVP Q8HR PRN PRN Reason: Nausea And Vomiting Risperidone (Risperidone 1 Mg Tab) 1 mg PO BID [facility] Past Medical History Past Medical History: Deep Vein Thrombosis (DVT), Pulmonary Embolus (PE) Additional Past Medical History / Comment(s): TBI 2020 History of Any Multi-Drug Resistant Organisms: None Reported Past Surgical History: Appendectomy Past Anesthesia/Blood Transfusion Reactions: No Reported Reaction Past Psychological History: No Psychological Hx Reported Smoking Status: Former smoker Past Alcohol Use History: Rare Past Drug Use History: None Reported - Past Family History Mother Additional Family Medical History / Comment(s): bladder cancer On examination: VITAL SIGNS: [98.1, 76, 18, 100/68, 96% room air] GENERAL APPEARANCE: BMI 19.7, laying in bed, appears rather distant. HEENT: Normal external appearance of nose and ear. Oral cavity normal EYES: Pupils equal. Conjunctiva normal. NECK: JVD not raised. Mass not palpable. RESPIRATORY: Respiratory effort normal. Lungs clear to auscultation. CARDIOVASCULAR: First and second sounds normal. No edema. ABDOMEN: Soft. Liver and spleen not palpable. No tenderness. No mass palpable. PSYCHIATRY: Does answer simple questions. Appears rather distant. NEUROLOGIC: Was witnessed walking. A bit slow. Tremors. INVESTIGATIONS, reviewed in the clinical context: White count 6 hemoglobin 12.2 platelets 207 sodium 140 potassium 3.5 BUN 15 creatinine 0.85 ammonia 10 prolactin 19.1 UA negative for nitrite leukoesterase. Urine drug screen positive for benzodiazepine. Previous studies: EEG [August] no epileptiform activity. MRI brain [August 2022]: Mild nonspecific white by the changes. Assessment and plan -Acute delirium/metabolic encephalopathy. Could be from medications. Discussed with Dr. Lewis from neurology. He'll cut back Keppra to 250 mg twice a day. -Psychosis, unspecified. Seen by Dr. Ontiveros from psychiatry. Risperdal 1 mg twice a day started. -Neurocognitive impairment from traumatic brain injury from previous cardiopulmonary arrest from pulmonary embolism. Aricept 5 mg twice a day. -Chronic tremors likely from traumatic brain injury. Discussed with Dr. Lewis from neurology. Dose of Keppra is being Back. We will try Mysoline in next 24-48 hours depending on clinical course. Keppra to be cut back to 250 twice a day. Risperdal at it by psychiatry. Discussed in detail with Dr. Lewis. Also consider cutting back on Aricept depending on clinical course next 24-48 hours. May add Mysoline for tremors if needed. Total time spent today about 1 hour today.
[2022-10-16] MEDS: MELATONIN 3 MG TABLET PO SCH (20:41)
[2022-10-16] MEDS: risperiDONE 1 MG TAB PO SCH (20:42)
[2022-10-16] MEDS: SODIUM CHLORIDE 0.9% 1,000 ML IV SCH ×2 (20:45→21:12)
[2022-10-16] MEDS ORDERED: lamoTRIgine 25 MG TAB PO SCH (21:00)
[2022-10-16] MEDS: levETIRAcetam 250 MG TAB PO SCH (21:11)
--- NOTE | 2022-10-16 21:20 | EEG ---
ELECTROENCEPHALOGRAM REPORT PREAMBLE: This is a 42-year-old female, came with confusion, rule out seizure. The patient is currently on Keppra. EEG FINDINGS: This is a 21-channel digital EEG recorded with video component, utilizing 10/20 international system with referential and bipolar montages. Background consists of well developed, well regulated, [id number] voltage activity in mixed frequencies of alpha and some beta activity seen in bihemispheric region. Background is posterior dominant and reactive to eye opening and closing. Photic driving response was not clearly seen. Intermittent left mid anterior temporal slowing was seen, which appears more artifactual in nature. Drowsiness was seen with appearance of bilaterally symmetric theta frequency rhythm. Deeper stages of sleep were not seen. No focal or generalized epileptiform activity was seen. IMPRESSION: This is a normal awake and drowsy EEG. No focal, lateralized or epileptiform activity was seen. The presence of slightly excessive low-voltage fast frequency beta activity suggests medication effect. MMODL / IJN: [id number] /
[2022-10-17] MEDS: levETIRAcetam 250 MG TAB PO SCH ×2 (08:59→20:53)
[2022-10-17] MEDS: risperiDONE 1 MG TAB PO SCH ×2 (08:59→20:53)
[2022-10-17] MEDS: DONEPEZIL 5 MG TAB PO SCH (08:59)
[2022-10-17] MEDS: ENOXAPARIN 40 MG/0.4 ML SYRINGE SQ SCH (08:59)
[2022-10-17] MEDS: SODIUM CHLORIDE 0.9% 1,000 ML IV SCH (10:09)
--- NOTE | 2022-10-17 14:16 | P.PN ---
Progress Note - Text Progress Note Date: 10/17/22 Interval History: Patient was seen for psychiatric follow-up regarding patient's psychosis and n eurocognitive disorder. Patient was started on Risperdal 1 mg twice a day and melatonin yesterday. Patient was seen sitting on her chair doing a crossword puzzle with her and son at her side. She states that she is doing "okay" and denied any overnight complaints. She continues to be fairly concrete and constricted. She did appear to be more engaged today with lyric writer. She is denying any depression or anxiety at this time. Store Worker spoke with Dr Channing mayo who beleived that patient was somewhat labile in her affect and tearful. Nurse had no significant complaints or issues and either did son or today. At this time patient denies any suicidal or homical ideations, intent or plan. Patient denies any auditory, visual hallucinations and denies any paranoia or delusions. Patient denies any side effects from the medications and has been compliant with meds. Mental Status Exam: General Appearance: Patient appears to be mildly tremulous, stated age is alert, improving eye contact, cooperative. Patient appears to have fair hygiene and grooming wearing hospital gown Behavior: Patient is calmly lying in bed without any agitated behavior. more pleasant and cooperative. Speech: Patient's speech is fluent and nonpressured. monotone, concrete Mood/Affect: Patient reports their mood is "alright", affect is congruent and constricted, improving mildly Suicidality/Homicidality: Patient denies having any suicidal or homicidal ideation intent or plan. Perceptions: Patient denies any visual hallucinations and denies any auditory hallucinations Though content/process: There is no evidence of any delusional thought content. [place]. Poverty of content, improving Memory and concentration: AOX3, was able to spell "world" backwards. Judgment and insight: chronically limited IMPRESSIONS: Psychosis unspecified neurocognitive disorder hx of hypoxic brain injury PLAN: -At this time patient DOES NOT meet criteria for inpatient psychiatric admission. -Delirium precautions recommended with patient including - avoiding use of narcotics and INSTRUMENTAL TEACHER sedatives, limit anticholinergic medications when possible, frequent re-orientation, minimize use of restraints, open window shades during the day and close them at night -Would recommend the following medication changes/additions: please continue decreasing keppra, avoiding benzos or benzo like sleep meds such as ambien. started to taper aricept down to 5 mg qhs and continue tapering further, risperdal 1 mg bid for mood stabilization/psychosis, melatonin 6 mg qhs for sleep. added depakote er 250 mg qhs for mood stabilization -pit worker power shovel to provide patient with outpatient mental health/psychiatry resources for appropriate follow up upon discharge -Communicated plan to patient's nurse -Psychiatry will follow along tomorrow and likely sign off then. -Please contact with any questions.
--- NOTE | 2022-10-17 19:15 | P.PN ---
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 Patient is not the best historian and no family at bedside history obtained from nursing staff as well as from medical records and partly from patient. * He was recently admitted in August for similar presentation. Patient had workup done during previous hospitalization it was deemed that her symptoms at that time was secondary to urinary tract infection * During this hospitalization patient presents with altered mentation and disoriented behavior. Patient required Ativan in ER. * CT head obtained negative for acute intracranial process. * Upon evaluation patient does not look infectious afebrile hemodynamically stable on room air * Chest x-ray does show a small right side effusion however not clinically significant at this point * urine drug screen was positive for benzo however that was secondary to benzo given in ER. * Ammonia level was within normal limits. * She admitted to medical floor with consultation to be obtained from neurology 10/16/2022: Patient laying in bed. Somewhat appears distant. Tremors. I weakness the patient walking with the therapist in the hallway. Slow. Did need slight support. There was able to walk. I consult psychiatry because patient having some psychotic symptoms for example asking about that where is her money. Later this afternoon patient was seen by Dr. Ontiveros from psychiatry. 4 psychotic symptoms patient started on Risperdal 1 mg twice a day. I did discuss with Dr. Lewis from neurology. Since the Keppra was only being given for her tremors with no seizure disorder at this point to cut back the Keppra 250 twice a day. We'll see how Risperdal doesn't next 24 hours. Remains then consider adding Mysoline for tremors. Patient did eat about 75%. UA is benign, and no UTI currently. In August of this year when patient was discharged she was on Keppra thousand milligrams every 12. And this tapered down as outpatient. To be followed by neurologist. 10/17/2022: Patient's and son present in the room. Patient is much better today. Did walk the patient in the hallway. Eating better. Patient likely smiling crying. Emotional was to go home. Did explain at length about patient and the family the change of medications is really be helpful. Also discussed with Dr. Lewis from neurology and Dr. Ontiveros from psychiatry. He was added Depakote at night. As discussed with Dr. Lewis and Dr. Ontiveros milligrams and Aricept can be cut back. We'll watch for another 24 hours. This concerned by Dr. Lewis about tremors from Depakote. Risperdal. He'll discuss this further with Dr. Ontiveros. Active Medications Acetaminophen (Acetaminophen Tab 325 Mg Tab) 650 mg PO Q6HR PRN PRN Reason: Mild Pain or Fever > 100.5 Amantadine HCl (Amantadine Hcl 100 Mg Cap) 100 mg PO DAILY COUNTS INCLUDE 234 BEDS AT THE [facility] Last Admin: 10/17/22 09:53 Dose: 100 mg Calcium Carbonate/Glycine (Calcium Carbonate 500 Mg Chewable) 1,000 mg PO Q4HR PRN PRN Reason: Dyspepsia Divalproex Sodium (Divalproex Er 250 Mg Tab.Er.24h) 250 mg PO HS COUNTS INCLUDE 234 BEDS AT THE [facility] Donepezil HCl (Donepezil 5 Mg Tab) 5 mg PO HS COUNTS INCLUDE 234 BEDS AT THE [facility] Enoxaparin Sodium (Enoxaparin 40 Mg/0.4 Ml Syringe) 40 mg SQ DAILY COUNTS INCLUDE 234 BEDS AT THE [facility] Last Admin: 10/17/22 08:59 Dose: 40 mg Sodium Chloride (Saline 0.9%) 1,000 mls @ 100 mls/hr IV .Q10H COUNTS INCLUDE 234 BEDS AT THE [facility] Last Admin: 10/17/22 10:09 Dose: Not Given Ibuprofen (Ibuprofen 400 Mg Tab) 400 mg PO Q6HR PRN PRN Reason: Mild Pain or Fever > 100.5 Ketorolac Tromethamine (Ketorolac 15 Mg/Ml 1 Ml Vial) 15 mg IVP Q6HR PRN PRN Reason: Moderate Pain (Scale 4 to 6) Stop: 10/18/22 10:48 Lactulose (Lactulose 20 Gm/30 Ml Cup) 20 gm PO DAILY PRN PRN Reason: Constipation Levetiracetam (Levetiracetam 250 Mg Tab) 250 mg PO Q12HR COUNTS INCLUDE 234 BEDS AT THE [facility] Last Admin: 10/17/22 08:59 Dose: 250 mg Melatonin (Melatonin 3 Mg Tablet) 6 mg PO HS COUNTS INCLUDE 234 BEDS AT THE [facility] Last Admin: 10/16/22 20:41 Dose: 6 mg Naloxone HCl (Naloxone 0.4 Mg/Ml 1 Ml Vial) 0.2 mg IV Q2M PRN PRN Reason: Opioid Reversal Ondansetron HCl (Ondansetron 4 Mg/2 Ml Vial) 4 mg IVP Q8HR PRN PRN Reason: Nausea And Vomiting Risperidone (Risperidone 1 Mg Tab) 1 mg PO BID GAVIN Last Admin: 10/17/22 08:59 Dose: 1 mg Past Medical History Past Medical History: Deep Vein Thrombosis (DVT), Pulmonary Embolus (PE) Additional Past Medical History / Comment(s): TBI 2019 History of Any Multi-Drug Resistant Organisms: None Reported Past Surgical History: Appendectomy Past Anesthesia/Blood Transfusion Reactions: No Reported Reaction Past Psychological History: No Psychological Hx Reported Smoking Status: Former smoker Past Alcohol Use History: Rare Past Drug Use History: None Reported - Past Family History Mother Additional Family Medical History / Comment(s): bladder cancer On examination: VITAL SIGNS: 97.5, 71, 15, 109/70, 98% room air GENERAL APPEARANCE: BMI 19.7, laying in bed, appears rather distant. HEENT: Normal external appearance of nose and ear. Oral cavity normal EYES: Pupils equal. Conjunctiva normal. NECK: JVD not raised. Mass not palpable. RESPIRATORY: Respiratory effort normal. Lungs clear to auscultation. CARDIOVASCULAR: First and second sounds normal. No edema. ABDOMEN: Soft. Liver and spleen not palpable. No tenderness. No mass palpable. PSYCHIATRY: Answering questions more appropriately today. Actually smiling and sometimes crying. Has wanting to go home. NEUROLOGIC: Ambulatory in the hallway. Decreased tremors. INVESTIGATIONS, reviewed in the clinical context: White count 6 hemoglobin 12.2 platelets 207 sodium 140 potassium 3.5 BUN 15 creatinine 0.85 ammonia 10 prolactin 19.1 UA negative for nitrite leukoesterase. Urine drug screen positive for benzodiazepine. Previous studies: EEG [August] no epileptiform activity. MRI brain [August 2022]: Mild nonspecific white by the changes. Assessment and plan -Acute delirium/metabolic encephalopathy. Could be from medications. Improving cut back Keppra to 250 mg twice a day. -Psychosis, unspecified. Seen by Dr. Ontiveros from psychiatry. Risperdal 1 mg twice a day . Depakote added today. -Neurocognitive impairment from traumatic brain injury from previous cardiopulmonary arrest from pulmonary embolism. Cut back Aricept 5 mg daily at bedtime -Chronic tremors likely from traumatic brain injury. Resting contacted to 50 mg twice a day. As a subcontractor 5 mg daily at bedtime. Depakote started by Dr. Ontiveros. Dr. Lewis will speak to Dr. Ontiveros regarding medications. Wash the patient for another 24-48 hours as medications are being adjusted.
[2022-10-17] MEDS: MELATONIN 3 MG TABLET PO SCH (20:53)
[2022-10-17] MEDS ORDERED: DIVALPROEX ER 250 MG TAB.ER.24H PO SCH (21:00)
[2022-10-17] MEDS ORDERED: DONEPEZIL 5 MG TAB PO SCH (21:00)
[2022-10-18 06:30] LABS: African American GFR (CKD) >90 (>60 ml/min/1.73 sqM); Anion Gap 5 mmol/L; Blood Urea Nitrogen 11 mg/dL (7-17); Calcium 8.5 mg/dL (8.4-10.2); Carbon Dioxide 25 mmol/L (22-30); Chloride 106 mmol/L (98-107); Glucose 77 mg/dL (74-99); Non-African American GFR(CKD) >90 (>60 ml/min/1.73 sqM); Sodium 136 mmol/L (137-145)
[2022-10-18 06:31] LABS: Potassium 4.2 mmol/L (3.5-5.1)
[2022-10-18] MEDS: SODIUM CHLORIDE 0.9% 1,000 ML IV SCH ×2 (07:42→09:03)
[2022-10-18] MEDS: levETIRAcetam 250 MG TAB PO SCH ×2 (09:00→20:51)
[2022-10-18] MEDS: ENOXAPARIN 40 MG/0.4 ML SYRINGE SQ SCH (09:00)
[2022-10-18] MEDS: risperiDONE 1 MG TAB PO SCH (09:16)
--- NOTE | 2022-10-18 09:16 | P.PN ---
Subjective Progress Note Date: 10/17/22 10/17/2022: Patient was seen for a follow-up. Patient was walking to her bed when I entered the room. Her gait appears stable. Subsequently patient is laying comfortably in the bed. Family members were not present at this time. Patient states that she is not happy, as her family is not here, and why she is still in the hospital. She denies any headache. Continues to have flat affect. She wants to go home. 10/16/2022: Patient was initially seen by Dr. Mango Leyva. Please refer to his note for details. Patient is a 42-year-old female known to me from previous admission to the hospital. Patient has history of TBI, and tremors due to cardiopulmonary arrest from PE. Patient is currently on Keppra 500 mg twice a day. Patient's and patient's son were also present today. They mentioned that patient has been having issues with mood swings since August 2022. She had history of cardiac arrest about 3 years ago. Patient had undergone extensive testing and was ruled out for seizures, possible nonepileptic spells. Patient's states that she came to the hospital because she is having "blackout, feels blind, angry, violent", with these episodes lasting for about 10 minutes and then she is back to herself. These episodes are more frequent when she has lack of sleep. These episodes are occurring about 2-4 times a day. He gives her melatonin to help sleep. Patient's believes that when she was taking Keppra 1000 g twice a day, these were not as frequent. However on the last visit the dose of Keppra was decreased to 500 mg twice a day. Patient also has tremors since August 2022. The tremors are sometimes worse, sometimes not as intense. It mainly involves the right hand. Patient is right- hand dominant. If she eats, drinks well, and rest, then does not shake as bad. Patient was evaluated at [facility] with 24 hours EEG monitoring which was reportedly normal. This was done several years ago. Patient's mentioned that she was doing very well since cardiac arrest, able to stay home by herself for 8-10 hours a day. She would get up, makes her breakfast, takes her medication, clean some part of the house. However since August, she has not been able to be left alone by herself. She has been on Keppra for 3 years. Patient has previously seen Dr. Anabella Beck. Patient has an appointment with Dr. Olson on 11/08/2022. Her Ammonia is less than 10 Urine drug screen is positive for benzo otherwise rest as nondetected. CT of the head is reported as mild chronic-appearing white matter change. Objective - Vital Signs Vital signs: Vital Signs Temp 97.5 F L 10/17/22 13:15 Pulse 71 10/17/22 13:15 Resp 15 10/17/22 13:15 BP 109/70 10/17/22 13:15 Pulse Ox 99 10/17/22 13:15 FiO2 Intake & Output 10/16/22 10/17/22 10/17/22 18:59 06:59 18:59 Intake Total 1350 600 500 Balance 1350 600 500 Intake: Intake, IV Titration 800 600 Amount Sodium Chloride 0.9% 1, 800 600 000 ml @ 100 mls/hr IV . Q10H GAVIN Rx#:[id number] Oral 550 500 Other: # Voids 2 3 3 - Exam Patient is a middle aged female, laying comfortably in the bed. Patient has a very flat affect. Patient's speech and language functions are normal. Patient can name and repeat very well. Patient knows it is October 2022 and that she is in [facility]. Her pupils are equal, round and reacting, visual waters are full, extraocular muscles are intact, face is symmetric. Tongue protrudes the midline. No signs of oral trauma. On muscle strength testing there is no pronator drift and the strength is normal in arms and legs distally and proximally. Tone is normal. No rigidity. On outstretched hands, I did not notice much twitching of the extremities. The tremors were not very significant today. - Labs CBC & Chem 7: 10/15/22 06:47 10/18/22 05:45 Assessment and Plan Assessment: This is a 42-year-old woman with history of traumatic brain injury/short-term memory loss as a result of cardiopulmonary arrest from pulmonary embolism in 2019, 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 notified the ED team that the patient has been confused for the last 2 days. * Recurrent transient encephalopathy of unknown etiology: Unsure if patient had seizure at home. She has multiple bruises of the bilateral upper extremity mostly the right than the left. This time no elevated ammonia or UTI. * History of confusion and was seen by our team at end of 08/2022 and it was fel t due to her recurrent UTI, elevated ammonia and medication effect (cyclsporine). Was notified to taper Keppra but not completely go off until seen by neurologist since no history of epileptic seizure and having behavioral issues. * History of tremors as a sequela from the cardiopulmonary arrest due to the pulmonary embolism 2019 and had extensive testing in the past and was told it was nonepileptic. She was placed on Keppra in the past by her neurologist. * History of traumatic brain injury due to cardiopulmonary arrest * History of cardiopulmonary arrest due to pulmonary embolism in 2019 * History of Pulmonary embolism and was on eliquis. * History of recurrent UTI, none this time T Plan: Patient has presented with recurrent episodes of psychiatric symptoms, manifesting with blackout, anger, agitation, lasting for about 10 minutes and then she is back to baseline. Exact cause of these episodes uncertain. Rule out psychiatric condition versus partial seizure. She had EEGs performed 2 different times recently which are normal. She had a prolonged EEG performed outpatient few years ago which was also reportedly normal. These spells were relatively better controlled when she was on Keppra 1000 mg twice a day, but has got worse since last admission, when the dose was decreased to 500 mg twice a day. Keppra can produce behavioral side effects, but patient's states that she was doing very well on Keppra 1000 mg twice a day for a few years prior. All symptoms started after she was hospitalized in August 2022. Discussed with primary physician. Patient was also seen by psychiatrist, and patient started on Risperdal 1 mg twice a day to address psychiatric symptoms. Keppra was decreased to 250 mg twice a day as of yesterday. Lamictal was not initiated, as seizures were much low in the differential. Psychiatry has seen the patient, started on Depakote 250 mg at bedtime for mood stabilization. Patient has history of confusion and was seen last by myself on 09/04/2022 at that time it was felt due to her recurrent UTI, elevated ammonia and medication effect (cyclsporine) but cannot exclusively rule out seizure. Was notified to taper Keppra but not completely go off until seen by neurologist since no hi story of epileptic seizure and having behavioral issues. Repeat EEG performed 10/16/2022 was normal. No epileptiform activity was seen. Lactic acid 0.8, prolactin elevated 90.10, ESR 8, CRP, vitamin B-12 457 and folate level 12.2. Keppra level 20.2 (3-60). Placed on seizure precautions seizure pads We'll defer the rest of the neurological workup to the primary team Patient has an appointment with Dr. Paredes as outpatient on 11/08/2022.
[2022-10-18] MEDS ORDERED: OLANZapine 10 MG VIAL IM PRN (13:13)
[2022-10-18] MEDS ORDERED: OLANZapine 5 MG TAB PO PRN (13:13)
--- NOTE | 2022-10-18 13:18 | P.PN ---
Progress Note - Text Progress Note Date: 10/18/22 Interval History: Patient was seen for psychiatric follow-up regarding patient's psychosis and n eurocognitive disorder. Patient apparently had an episode of severe agitation last night around 8:00 however after taking her nighttime medications she was able to sleep later on. Patient's came back to the hospital to help patient calmed down as she was demanding to be discharged. Patient's nurse did not complain of any issues today patient has been fairly cooperative. The patient was seen sitting on her bed today eating her lunch and continues to be fairly concrete, denied any complaints at this time. States that she is feeling "okay". She continues to have somewhat poor eye contact and limited insight and judgment. She is denying any depression or anxiety at this time. At this time patient denies any suicidal or homical ideations, intent or plan. Patient denies any auditory, visual hallucinations and denies any paranoia or delusions. Patient denies any side effects from the medications and has been compliant with meds. Mental Status Exam: General Appearance: Patient appears to be mildly tremulous, stated age is alert, poor eye contact, attempts to be cooperative. Patient appears to have fair hygiene and grooming wearing hospital gown Behavior: Patient is calmly lying in bed without any agitated behavior. Attempts to be cooperative. Speech: Patient's speech is fluent and nonpressured. monotone, concrete Mood/Affect: Patient reports their mood is "ok", affect is congruent and constricted, improving mildly Suicidality/Homicidality: Patient denies having any suicidal or homicidal ideation intent or plan. Perceptions: Patient denies any visual hallucinations and denies any auditory hallucinations Though content/process: There is no evidence of any delusional thought content. [place]. Poverty of content, improving Memory and concentration: AOX3, was able to spell "world" backwards. Judgment and insight: chronically limited IMPRESSIONS: Psychosis unspecified neurocognitive disorder hx of hypoxic brain injury PLAN: -At this time patient DOES NOT meet criteria for inpatient psychiatric admission. -Delirium precautions recommended with patient including - avoiding use of narcotics and SOLAR FIELD SERVICE TECHNICIAN sedatives, limit anticholinergic medications when possible, frequent re-orientation, minimize use of restraints, open window shades during the day and close them at night -Would recommend the following medication changes/additions: please continue dec reasing keppra, avoiding benzos or benzo like sleep meds such as ambien. change risperdal 2 mg QHS for mood stabilization/psychosis, melatonin 6 mg qhs for sleep. increase depakote er 500 mg qhs for mood stabilization, added zyprexa prn both IM and PO for agitation. (Patient can be discharged with a 2 week supply of zyprexa 5 daily PO prn for agitation at home) -dye house worker to provide patient with outpatient mental health/psychiatry resources for appropriate follow up upon discharge -Communicated plan to patient's nurse -Psychiatry will follow along tomorrow if needed, aiming for discharge tomorrow if patient is doing better and has a better evening -Please contact with any questions.
--- NOTE | 2022-10-18 18:01 | P.PN ---
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 Patient is not the best historian and no family at bedside history obtained from nursing staff as well as from medical records and partly from patient. * He was recently admitted in August for similar presentation. Patient had workup done during previous hospitalization it was deemed that her symptoms at that time was secondary to urinary tract infection * During this hospitalization patient presents with altered mentation and disoriented behavior. Patient required Ativan in ER. * CT head obtained negative for acute intracranial process. * Upon evaluation patient does not look infectious afebrile hemodynamically stable on room air * Chest x-ray does show a small right side effusion however not clinically significant at this point * urine drug screen was positive for benzo however that was secondary to benzo given in ER. * Ammonia level was within normal limits. * She admitted to medical floor with consultation to be obtained from neurology 10/16/2022: Patient laying in bed. Somewhat appears distant. Tremors. I weakness the patient walking with the therapist in the hallway. Slow. Did need slight support. There was able to walk. I consult psychiatry because patient having some psychotic symptoms for example asking about that where is her money. Later this afternoon patient was seen by Dr. Ontiveros from psychiatry. 4 psychotic symptoms patient started on Risperdal 1 mg twice a day. I did discuss with Dr. Lewis from neurology. Since the Keppra was only being given for her tremors with no seizure disorder at this point to cut back the Keppra 250 twice a day. We'll see how Risperdal doesn't next 24 hours. Remains then consider adding Mysoline for tremors. Patient did eat about 75%. UA is benign, and no UTI currently. In August of this year when patient was discharged she was on Keppra thousand milligrams every 12. And this tapered down as outpatient. To be followed by neurologist. 10/17/2022: Patient's and son present in the room. Patient is much better today. Did walk the patient in the hallway. Eating better. Patient likely smiling crying. Emotional was to go home. Did explain at length about patient and the family the change of medications is really be helpful. Also discussed with Dr. Lewis from neurology and Dr. Ontiveros from psychiatry. He was added Depakote at night. As discussed with Dr. Lewis and Dr. Ontiveros milligrams and Aricept can be cut back. We'll watch for another 24 hours. This concerned by Dr. Lewis about tremors from Depakote. Risperdal. He'll discuss this further with Dr. Ontiveros. 10/18/2022: Patient is rather agitated last night wanted to leave the hospital. We called and the and he stated the patient overnight. Patient slept fr around 10:30 PM to about 9:00 this morning. Ate sandwich from [employer]. Did walk in the hallway with and son. I discussed with Dr. Ontiveros from psychiatry. Risperdal morning doses being discontinued and evening dose increase or 2 mg. Is also increasing the Depakote dose to 5 mg daily at bedtime. I will DC the Aricept. Discussed with about tapering off the Keppra next week or so. No tremors noted. Active Medications Acetaminophen (Acetaminophen Tab 325 Mg Tab) 650 mg PO Q6HR PRN PRN Reason: Mild Pain or Fever > 100.5 Amantadine HCl (Amantadine Hcl 100 Mg Cap) 100 mg PO DAILY [facility] Last Admin: 10/18/22 09:00 Dose: 100 mg Calcium Carbonate/Glycine (Calcium Carbonate 500 Mg Chewable) 1,000 mg PO Q4HR PRN PRN Reason: Dyspepsia Divalproex Sodium (Divalproex Er 500 Mg Tab.Er.24h) 500 mg PO HS [facility] Enoxaparin Sodium (Enoxaparin 40 Mg/0.4 Ml Syringe) 40 mg SQ DAILY [facility] Last Admin: 10/18/22 09:00 Dose: 40 mg Ibuprofen (Ibuprofen 400 Mg Tab) 400 mg PO Q6HR PRN PRN Reason: Mild Pain or Fever > 100.5 Lactulose (Lactulose 20 Gm/30 Ml Cup) 20 gm PO DAILY PRN PRN Reason: Constipation Levetiracetam (Levetiracetam 250 Mg Tab) 250 mg PO Q12HR [facility] Last Admin: 10/18/22 09:00 Dose: 250 mg Melatonin (Melatonin 3 Mg Tablet) 6 mg PO HS [facility] Last Admin: 10/17/22 20:53 Dose: 6 mg Naloxone HCl (Naloxone 0.4 Mg/Ml 1 Ml Vial) 0.2 mg IV Q2M PRN PRN Reason: Opioid Reversal Olanzapine (Olanzapine 10 Mg Vial) 5 mg IM TID PRN PRN Reason: Agitation Olanzapine (Olanzapine 5 Mg Tab) 5 mg PO TID PRN PRN Reason: Agitation Ondansetron HCl (Ondansetron 4 Mg/2 Ml Vial) 4 mg IVP Q8HR PRN PRN Reason: Nausea And Vomiting Risperidone (Risperidone 2 Mg Tab) 2 mg PO [facility] Past Medical History Past Medical History: Deep Vein Thrombosis (DVT), Pulmonary Embolus (PE) Additional Past Medical History / Comment(s): TBI 2020 History of Any Multi-Drug Resistant Organisms: None Reported Past Surgical History: Appendectomy Past Anesthesia/Blood Transfusion Reactions: No Reported Reaction Past Psychological History: No Psychological Hx Reported Smoking Status: Former smoker Past Alcohol Use History: Rare Past Drug Use History: None Reported - Past Family History Mother Additional Family Medical History / Comment(s): bladder cancer On examination: VITAL SIGNS: 98.4, 69, 16, 96/61, 100% room air GENERAL APPEARANCE: BMI 19.7, laying in bed, smiling occasionally HEENT: Normal external appearance of nose and ear. Oral cavity normal EYES: Pupils equal. Conjunctiva normal. NECK: JVD not raised. Mass not palpable. RESPIRATORY: Respiratory effort normal. Lungs clear to auscultation. CARDIOVASCULAR: First and second sounds normal. No edema. ABDOMEN: Soft. Liver and spleen not palpable. No tenderness. No mass palpable. PSYCHIATRY: Answering questions. Slightly depressed appearing. NEUROLOGIC: Ambulatory in the hallway. No tremors INVESTIGATIONS, reviewed in the clinical context: White count 6 hemoglobin 12.2 platelets 207 sodium 140 potassium 3.5 BUN 15 creatinine 0.85 ammonia 10 prolactin 19.1 UA negative for nitrite leukoesterase. Urine drug screen positive for benzodiazepine. Previous studies: EEG [August] no epileptiform activity. MRI brain [August 2022]: Mild nonspecific white by the changes. Assessment and plan -Acute delirium/metabolic encephalopathy. Could be from medications. Improving cut back Keppra to 250 mg twice a day. -Psychosis, unspecified. Seen by Dr. Ontiveros from psychiatry. Change Risperdal 2 mg daily at bedtime. . Depakote increased to 500 mg daily at bedtime -Neurocognitive impairment from traumatic brain injury from previous cardiopulmonary arrest from pulmonary embolism. Stop Aricept. Not felt to be helpful. -Chronic tremors likely from traumatic brain injury.: Improved Decreasing dose of Keppra. Total time spent today about 1 hour with about 40 minutes of discussion.
[2022-10-18] MEDS: MELATONIN 3 MG TABLET PO SCH (20:51)
[2022-10-18] MEDS ORDERED: risperiDONE 2 MG TAB PO SCH (21:00)
[2022-10-18] MEDS ORDERED: DIVALPROEX ER 500 MG TAB.ER.24H PO SCH (21:00)
[2022-10-19] MEDS: levETIRAcetam 250 MG TAB PO SCH (08:15)
[2022-10-19] MEDS: ENOXAPARIN 40 MG/0.4 ML SYRINGE SQ SCH (08:15)
[2022-10-19 08:47] VITALS: BP 104/65; PULSE 65; RESP 20; TEMP 97.9
--- NOTE | 2022-10-19 11:20 | P.PN ---
Subjective Progress Note Date: 10/18/22 10/18/2022: Patient was seen for a follow-up. Patient's was also present today. Patient has some slight irritability last night, but overall much better with Risperdal. Her tremors are better. No new concerns. No seizure-like spells. 10/17/2022: Patient was seen for a follow-up. Patient was walking to her bed when I entered the room. Her gait appears stable. Subsequently patient is laying comfortably in the bed. Family members were not present at this time. Patient states that she is not happy, as her family is not here, and why she is still in the hospital. She denies any headache. Continues to have flat affect. She wants to go home. 10/16/2022: Patient was initially seen by Dr. Mango Leyva. Please refer to his note for details. Patient is a 42-year-old female known to me from previous admission to the hospital. Patient has history of TBI, and tremors due to cardiopulmonary arrest from PE. Patient is currently on Keppra 500 mg twice a day. Patient's and patient's son were also present today. They mentioned that patient has been having issues with mood swings since August 2022. She had history of cardiac arrest about 3 years ago. Patient had undergone extensive testing and was ruled out for seizures, possible nonepileptic spells. Patient's states that she came to the hospital because she is having "blackout, feels blind, angry, violent", with these episodes lasting for about 10 minutes and then she is back to herself. These episodes are more frequent when she has lack of sleep. These episodes are occurring about 2-4 times a day. He gives her melatonin to help sleep. Patient's believes that when she was taking Keppra 1000 g twice a day, these were not as frequent. However on the last visit the dose of Keppra was decreased to 500 mg twice a day. Patient also has tremors since August 2022. The tremors are sometimes worse, sometimes not as intense. It mainly involves the right hand. Patient is right- hand dominant. If she eats, drinks well, and rest, then does not shake as bad. Patient was evaluated at [facility] with 24 hours EEG monitoring which was reportedly normal. This was done several years ago. Patient's mentioned that she was doing very well since cardiac arrest, able to stay home by herself for 8-10 hours a day. She would get up, makes her breakfast, takes her medication, clean some part of the house. However since August, she has not been able to be left alone by herself. She has been on Keppra for 3 years. Patient has previously seen Dr. Anabella Beck. Patient has an appointment with Dr. Olson on 11/08/2022. Her Ammonia is less than 10 Urine drug screen is positive for benzo otherwise rest as nondetected. CT of the head is reported as mild chronic-appearing white matter change. Objective - Vital Signs Vital signs: Vital Signs Temp 98.4 F 10/18/22 13:15 Pulse 69 10/18/22 13:15 Resp 16 10/18/22 13:15 BP 96/61 10/18/22 13:15 Pulse Ox 100 10/18/22 13:15 FiO2 Intake & Output 10/18/22 10/18/22 10/19/22 06:59 18:59 06:59 Other: Voiding Method Toilet # Voids 2 - Exam Patient is a middle aged female, laying comfortably in the bed. Patient has a very flat affect. Patient's speech and language functions are normal. Patient can name and repeat very well. Patient knows it is October 2022 and that she is in [facility]. Her pupils are equal, round and reacting, visual waters are full, extraocular muscles are intact, face is symmetric. Tongue protrudes the midline. No signs of oral trauma. On muscle strength testing there is no pronator drift and the strength is normal in arms and legs distally and proximally. Tone is normal. No rigidity. On outstretched hands, I did not notice much twitching of the extremities. The tremors were not very significant today either. Overall she is better. - Labs CBC & Chem 7: 10/15/22 06:47 10/18/22 05:45 Labs: Abnormal Lab Results - Last 24 Hours (Table) 10/18/22 Range/Units 05:45 Sodium 136 L (137-145) mmol/L Assessment and Plan Assessment: This is a 42-year-old woman with history of traumatic brain injury/short-term memory loss as a result of cardiopulmonary arrest from pulmonary embolism in 2019, 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 notified the ED team that the patient has been confused for the last 2 days. * Recurrent transient encephalopathy of unknown etiology: Unsure if patient had seizure at home. She has multiple bruises of the bilateral upper extremity m ostly the right than the left. This time no elevated ammonia or UTI. * History of confusion and was seen by our team at end of 08/2022 and it was felt due to her recurrent UTI, elevated ammonia and medication effect (cyclsporine). Was notified to taper Keppra but not completely go off until seen by neurologist since no history of epileptic seizure and having behavioral issues. * History of tremors as a sequela from the cardiopulmonary arrest due to the pulmonary embolism 2019 and had extensive testing in the past and was told it was nonepileptic. She was placed on Keppra in the past by her neurologist. * History of traumatic brain injury due to cardiopulmonary arrest * History of cardiopulmonary arrest due to pulmonary embolism in 2019 * History of Pulmonary embolism and was on eliquis. * History of recurrent UTI, none this time T Plan: Patient has presented with recurrent episodes of psychiatric symptoms, manifesting with blackout, anger, agitation, lasting for about 10 minutes and then she is back to baseline. Probable related to psychiatric condition, doubt seizures. Multiple EEGs negative in the past. Never had any history of obvious seizure. Episodes have improved since being on Risperdal. Patient had EEGs performed 2 different times recently which are normal. She had a prolonged EEG performed outpatient few years ago which was also reportedly normal. Patient being tapered off Keppra. Currently on Keppra 250 mg twice a day. May discontinue over 7-10 days. Patient closed he followed up by psychiatrist. Patient currently on Depakote ER 500 mg at bedtime. Tolerating it well. Tremors are stable. Patient is on Risperdal 2 mg at bedtime and Zyprexa 5 mg by mouth 3 times a day when necessary agitation. Patient has history of confusion and was seen last by myself on 09/04/2022 at that time it was felt due to her recurrent UTI, elevated ammonia and medication effect (cyclsporine) but cannot exclusively rule out seizure. Was notified to taper Keppra but not completely go off until seen by neurologist since no history of epileptic seizure and having behavioral issues. Repeat EEG performed 10/16/2022 was normal. No epileptiform activity was seen. Lactic acid 0.8, prolactin elevated 90.10, ESR 8, CRP, vitamin B-12 457 and folate level 12.2. Keppra level 20.2 (3-60). Neurologically clear for discharge. Patient has an appointment with Dr. Paredes as outpatient on 11/08/2022.
--- NOTE | 2022-10-19 20:51 | P.DS ---
Providers Date of admission: 10/15/22 10:18 Expected date of discharge: 10/19/22 Attending physician: Jeffy Snell Consults: 10/15/22 10:47 Consult Physician Urgent Consulting Provider: Mango Leyva Consult Reason/Comments: Altered mental status Do you want consulting provider notified?: Yes 10/16/22 11:28 Consult Physician Routine Consulting Provider: Jasvir Ontiveros Consult Reason/Comments: anxiety,delusions Do you want consulting provider notified?: Yes Primary care physician: Todd Kumar Hospital Course: Hospital course * 42-year-old lady with past medical history of cognitive impairment secondary to traumatic brain injury, previous history of cardiopulmonary arrest with history of pulmonary embolism in 2019, history of tremors as a sequel of cardiopulmonary arrest, presented to the emergency department with altered mentation. Patient is not the best historian and no family at bedside history obtained from nursing staff as well as from medical records and partly from patient. * He was recently admitted in August for similar presentation. Patient had workup done during previous hospitalization it was deemed that her symptoms at that time was secondary to urinary tract infection * During this hospitalization patient presents with altered mentation and disoriented behavior. Patient required Ativan in ER. * CT head obtained negative for acute intracranial process. * Upon evaluation patient does not look infectious afebrile hemodynamically stable on room air * Chest x-ray does show a small right side effusion however not clinically significant at this point * urine drug screen was positive for benzo however that was secondary to benzo given in ER. * Ammonia level was within normal limits. * She admitted to medical floor with consultation to be obtained from neurology 10/16/2022: Patient laying in bed. Somewhat appears distant. Tremors. I weakness the patient walking with the therapist in the hallway. Slow. Did need slight support. There was able to walk. I consult psychiatry because patient having some psychotic symptoms for example asking about that where is her money. Later this afternoon patient was seen by Dr. Ontiveros from psychiatry. 4 psychotic symptoms patient started on Risperdal 1 mg twice a day. I did discuss with Dr. Lewis from neurology. Since the Keppra was only being given for her tremors with no seizure disorder at this point to cut back the Keppra 250 twice a day. We'll see how Risperdal doesn't next 24 hours. Remains then consider adding Mysoline for tremors. Patient did eat about 75%. UA is benign, and no UTI currently. In August of this year when patient was discharged she was on Keppra thousand milligrams every 12. And this tapered down as outpatient. To be followed by neurologist. 10/17/2022: Patient's and son present in the room. Patient is much better today. Did walk the patient in the hallway. Eating better. Patient likely smiling crying. Emotional was to go home. Did explain at length about patient and the family the change of medications is really be helpful. Also discussed with Dr. Lewis from neurology and Dr. Ontiveros from psychiatry. He was added Depakote at night. As discussed with Dr. Lewis and Dr. Ontiveros milligrams and Aricept can be cut back. We'll watch for another 24 hours. This concerned by Dr. Lewis about tremors from Depakote. Risperdal. He'll discuss this further with Dr. Ontiveros. 10/18/2022: Patient is rather agitated last night wanted to leave the hospital. We called and the and he stated the patient overnight. Patient slept from around 10:30 PM to about 9:00 this morning. Ate sandwich from [employer]. Did walk in the hallway with and son. I discussed with Dr. Ontiveros from psychiatry. Risperdal morning doses being discontinued and evening dose increase or 2 mg. Is also increasing the Depakote dose to 500 mg daily at bedtime. I will DC the Aricept. Discussed with about tapering off the Keppra next week or so. No tremors noted. 10/19/2022: Patient doing well this morning. Slept well last night. at the bedside. Questions were answered. Medications discussed. Patient's Keppra to be discontinued in next 3-4 days. Patient has an appointment to follow up with Dr. Ogden the neurologist. Questions answered. Tremors are minimal if any. Patient also to follow up at [facility]. Discussion and discharge planning more than 35 minutes Past Medical History Past Medical History: Deep Vein Thrombosis (DVT), Pulmonary Embolus (PE) Additional Past Medical History / Comment(s): 2019 History of Any Multi-Drug Resistant Organisms: None Reported Past Surgical History: Appendectomy Past Anesthesia/Blood Transfusion Reactions: No Reported Reaction Past Psychological History: No Psychological Hx Reported Smoking Status: Former smoker Past Alcohol Use History: Rare Past Drug Use History: None Reported - Past Family History Mother Additional Family Medical History / Comment(s): bladder cancer On examination: VITAL SIGNS: 37.9, 65, 20, 104/65, 97% room air GENERAL APPEARANCE: BMI 19.7, up in a recliner, comfortable HEENT: Normal external appearance of nose and ear. Oral cavity normal EYES: Pupils equal. Conjunctiva normal. NECK: JVD not raised. Mass not palpable. RESPIRATORY: Respiratory effort normal. Lungs clear to auscultation. CARDIOVASCULAR: First and second sounds normal. No edema. ABDOMEN: Soft. Liver and spleen not palpable. No tenderness. No mass palpable. PSYCHIATRY: Answering questions appropriately. NEUROLOGIC: Ambulatory in the hallway. No tremors INVESTIGATIONS, reviewed in the clinical context: White count 6 hemoglobin 12.2 platelets 207 sodium 140 potassium 3.5 BUN 15 creatinine 0.85 ammonia 10 prolactin 19.1 UA negative for nitrite leukoesterase. Urine drug screen positive for benzodiazepine. Previous studies: EEG [August] no epileptiform activity. MRI brain [August 2022]: Mild nonspecific white by the changes. Assessment and plan -Acute delirium/metabolic encephalopathy. Could be from medications. Resolved cut back Keppra to 250 mg twice a day.-To be discontinued in next 4-5 days. -Psychosis, unspecified. Seen by Dr. Ontiveros from psychiatry. Risperdal 2 mg daily at bedtime. . Depakote 500 mg daily at bedtime -Neurocognitive impairment from traumatic brain injury from previous cardiopulmonary arrest from pulmonary embolism. Stop Aricept. Not felt to be helpful. -Chronic tremors likely from traumatic brain injury.: Resolved Decreasing dose of Keppra. Stop in next 3-5 days. Disposition: Home Plan - Discharge Summary Discharge Rx Participant: No New Discharge Prescriptions: New Divalproex ER [Depakote ER] 500 mg PO HS #30 tab Melatonin 6 mg PO HS #60 tab risperiDONE [RisperDAL] 2 mg PO HS #30 tab OLANZapine [ZyPREXA] 5 mg PO TID PRN #30 tab PRN Reason: Agitation Continue amantadine HCL [Amantadine] 100 mg PO DAILY Ibuprofen [Motrin] 800 mg PO Q8H PRN PRN Reason: Pain Or Fever > 100.5 Changed levETIRAcetam [Keppra] 250 mg PO BID #0 Discontinued Donepezil [Aricept] 5 mg PO BID Zolpidem [Ambien] 5 mg PO HS Discharge Medication List amantadine HCL [Amantadine] 100 mg PO DAILY 09/02/22 [History] Ibuprofen [Motrin] 800 mg PO Q8H PRN 10/15/22 [History] Divalproex ER [Depakote ER] 500 mg PO HS #30 tab 10/19/22 [Rx] Melatonin 6 mg PO HS #60 tab 10/19/22 [Rx] OLANZapine [ZyPREXA] 5 mg PO TID PRN #30 tab 10/19/22 [Rx] levETIRAcetam [Keppra] 250 mg PO BID #0 10/19/22 [Rx] risperiDONE [RisperDAL] 2 mg PO HS #30 tab 10/19/22 [Rx] Follow up Appointment(s)/Referral(s): dr TOAN [Other] - 10 Days Todd Kumar DO [Primary Care Provider] - 10/23/22 11:15 am Nely Paredes MD [Medical Doctor] - 1 Week (Please call office to make your appointment.) Discharge/Stand Alone Forms: Help In The Home Discharge Disposition: HOME SELF-CARE
== END 2022-10-19 13:24 | disposition home or self-care (01) ==
LOC: EC 05:20 → 5NMEDONC 10:18 → INTOOBSV 10:18 → 5NMEDONC 14:21 → 4SSUR 17:41 → UNDODISIN 10-19 13:24
PROVIDERS: ADMIT Hospitalist; ATTEND Hospitalist
DX: G93.41 Metabolic encephalopathy (principal); G93.1 Anoxic brain damage, not elsewhere classified; F29 Unspecified psychosis not due to a substance or known physiological condition; R41.9 Unspecified symptoms and signs involving cognitive functions and awareness; R41.3 Other amnesia; R25.1 Tremor, unspecified; Z87.820 Personal history of traumatic brain injury; Z86.74 Personal history of sudden cardiac arrest; Z86.711 Personal history of pulmonary embolism; Z87.440 Personal history of urinary (tract) infections; Z79.899 Other long term (current) drug therapy; Z88.0 Allergy status to penicillin; Z86.718 Personal history of other venous thrombosis and embolism; Z90.49 Acquired absence of other specified parts of digestive tract; Z87.891 Personal history of nicotine dependence; Z80.52 Family history of malignant neoplasm of bladder
CPT/HCPCS: 96361 ×2; 96372 ×5; 96360; 99285; 36415; 94760; 95816; 93005; 97116; 97162; 80053; 80048; 85652; 80177; 82607; 82140; 82746; 83605; 84484; 85025; 85610; 85730; 81001; 84146; 80306; 71045; 70450; G0378 ×6; J2060; J1200; J1630; J1650 ×4; 96374; 96375